=== PATIENT | male | born 1970 | race Two or more races ===

== ENCOUNTER 2024-09-07 17:09 | Inpatient (IN) | payer OTHER, SELFPAY ==
[2024-09-07 17:20] VITALS: BP 217/118; PULSE 124; RESP 20; O2SAT 98; BMI 59.7
--- NOTE | 2024-09-07 17:20 | XR_ITS ---
Examination: CT brain head without contrast. 2-D sagittal coronal reconstructions Date and time of exam:September 07, 2024 1725 hrs. Indications: Stroke alert, onset focal neurologic deficit beginning 4:00 PM today, including right-sided body numbness CTDI: vol (mGy):66.6 DLP: (mGycm):1301 Technique: Multiple CT axial sections of the brain have been obtained, 5 mm slice thickness. Contrast has not been administered. 2-D sagittal, coronal reconstructions have been obtained Low dose protocols were performed. One or more of the following dose reduction techniques were used; automated exposure control, adjustment of the mA and/or KV according to patient size, use of iterative reconstruction technique. Findings: No significant ventricular enlargement. Intra-axial or extra-axial hemorrhage density is not seen. No mass effect or midline shift Basal cisterns are not remarkable. Fourth ventricle is midline. Cranial vault intact. Impression: Negative for acute hemorrhage, mass effect or midline shift Brain MRI MRA without contrast, stroke protocol, follow-up would best assess for demyelinating disease, acute ischemic change
--- NOTE | 2024-09-07 17:20 | EKG_ITS ---
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
--- NOTE | 2024-09-07 17:20 | XR_ITS ---
Examination: CTA carotids with intravenous contrast CTA brain, head with intravenous contrast. 2-D sagittal, coronal reconstructions. 3-D reconstructions. Exam date and time: September 07, 2024 1735 hrs. Indications: Stroke alert, onset left-sided body numbness focal neurologic deficit beginning 4:00 PM today CTDI: vol (mGy) 20.9 DLP: (mGycm) 438 Technique: Multiple CTA axial brain, head carotid images post intravenous contrast injection 75 cc, [id number]. 2-D sagittal, coronal reconstructions. 3-D reconstructions, 3-D post processing including vascular maximum intensity projection images. Low dose protocols were performed. One or more of the following dose reduction techniques were used; automated exposure control, adjustment of the mA and/or KV according to patient size, use of iterative reconstruction technique. Findings: No significant common carotid carotid bifurcation or internal carotid artery stenoses Markedly atretic but intact appearing right vertebral artery No cerebral large vessel arterial occlusions, thrombus, dissection or cerebral aneurysm Impression: No significant neck arterial stenoses No cerebral arterial stenoses are large vessel occlusions
[2024-09-07 17:21] VITALS: RESP 17; O2SAT 98
--- NOTE | 2024-09-07 17:21 | PC.NURSE ---
Pt. taken to CT via so[facility]ail, pt. states he thinks he had a seizure at 1300 today, pt. states he called his around 1700 to tell her he was having a stroke, Dr. Edgard gibbs M.D. on tele monitor, report given, pt. informed me RN that he was on seizure medication and high blood pressure medication, pt. states he drank to much alcohol today and he thinks that is why he had a seizure, asked pt. if he is trying to kill himself, pt. started laughing and stated he's not answering that question. Informed pt. it's not safe to take high blood pressure medication and seizure medication with alcohol, pt. states he knows.
--- NOTE | 2024-09-07 17:21 | PD.EDADULT ---
ED General RME/[facility] General Chief complaint: General Adult/Misc Complain Stated complaint: RIGHT SIDED NUMBNESS LKW 4PM Time Seen by Provider: 09/07/24 17:20 Arrival date/time: 09/07/24 17:09 RME / HPI RME / HPI narrative: 54-year-old male patient with significant history of hypercholesterolemia diabetes mellitus hypertension, chronic alcoholism was brought in by family for evaluation regarding slurring of speech. Last well-known time between 330 to 4 PM. Patient also complained of numbness to the right side of the upper and lower extremity. Patient denies any headache denies any dizziness. Denies any chest pain. Patient also denies any fall or trauma. No medications taken prior travel. Related Data Home Medications ?Medication ?Instructions ?Recorded ?Confirmed atorvastatin 20 mg tablet 20 mg PO QPM 07/18/24 07/18/24 ferrous sulfate 325 mg (65 mg 325 mg PO QDAY 07/18/24 07/18/24 iron) tablet (FeroSul) lisinopril 10 mg tablet 10 mg PO QDAY 07/18/24 07/18/24 Allergies Allergy/AdvReac Type Severity Reaction Status Date / Time No Known Allergies Allergy Verified 07/18/24 09:28 Review of Systems Review of Systems Narrative Review of Systems: Review of system reviewed and within normal limits except mentioned in HPI ED Exam Narrative Physical exam: VITAL SIGNS: Reviewed. GENERAL APPEARANCE: Alert and interactive, follows commands, no acute distress, HEAD AND FACE: Non-traumatic. ENT: PERRL, pink conjunctivitis, eyelid no trauma, Mucous membrane moist. NECK: Supple, nontender, no nuchal rigidity. CHEST: No tenderness, no crepitus, no paradoxical movement, no retractions. LUNGS: Clear, well ventilated, symmetric, no rales, no wheezing, no ronchi, no stridor, good breath sounds bilaterally. HEART: Regular rate, regular rhythm, no murmur, no gallops. ABDOMEN: Soft, positive bowel sounds, nondistended, no guarding, nontender, no rebound, no masses, RECTAL: Deferred. GENITAL: Deferred. NEUROLOGICAL: Gross motor function intact both upper lower extremity, numbness noted on the right upper and right lower extremity, no arm or lower leg drifting noted bilateral MUSCULOSKELETAL: low back nontender, full range of motion. EXTREMITIES: Nontender, full range of motion. SKIN: Color pink, dry, no rash, no lacerations, no abrasions, no contusions. LYMPHATICS: Deferred. Course Quality Measures none Orders Category Date Time Status Bedside Blood Glucose NOW Care 09/07/24 17:20 Active COVID-19 Screening Questionnaire NOW Care 09/07/24 19:25 Active Charging Operator NOW Care 09/07/24 17:20 Active Continuous Pulse Oximetry NOW Care 09/07/24 17:20 Completed Decision to Admit X1 Care 09/07/24 19:25 Active EKG (ED ONLY) *Do not use* NOW Care 09/07/24 17:20 Completed In and Out Catheter NEEDED Care 09/07/24 17:20 Active Insert IV NOW Care 09/07/24 17:20 Active NIH Stroke Scale now Care 09/07/24 17:20 Active NPO NOW Care 09/07/24 17:20 Active Nurse Swallow Screen x1 Care 09/07/24 17:20 Active Consult to Neurology / Tele-Neurology Routine Cons 09/07/24 17:[address] angio stroke protocol Stat Exams 09/07/24 17:[address] stroke protocol Stat Exams 09/07/24 17:20 Completed EKG (ED Only) Stat Exams 09/07/24 17:20 Draft Alcohol, Blood Medical Stat Lab 09/07/24 17:33 Completed CBC Stat Lab 09/07/24 17:33 Completed Comprehensive Metabolic Panel Stat Lab 09/07/24 17:33 Completed Drug Screen,Urine Stat Lab 09/07/24 17:20 Ordered Magnesium Stat Lab 09/07/24 17:33 Completed Partial Thromboplastin Time Stat Lab 09/07/24 17:33 Completed Prothrombin Time with INR Stat Lab 09/07/24 17:33 Completed Troponin I Stat Lab 09/07/24 17:33 Completed Urinalysis Stat Lab 09/07/24 17:20 Ordered Urine Culture Stat Lab 09/07/24 17:20 Ordered Aspirin [Ecotrin] Med 09/07/24 18:11 Discontinued 81 mg PO X1 ONE Clopidogrel [Plavix] Med 09/07/24 18:11 Discontinued 300 mg PO X1 ONE Ondansetron Inj [Zofran Inj] Med 09/07/24 17:20 Active 4 mg IV Q4HR PRN Oxygen Delivery NOW RT 09/07/24 17:20 Active Vital Signs Vital signs: Vital Signs Pulse Rate 124 H 09/07/24 17:20 Respiratory Rate 20 09/07/24 17:20 Blood Pressure 217/118 H 09/07/24 17:20 Pulse Oximetry (%) 98 09/07/24 17:20 Oxygen Delivery Method Room Air 09/07/24 17:20 [facility] Patient data External records reviewed:: None Clinical information provided by:: patient Social determinants that could affect healthcare access:: alcohol use Patient has the following chronic illnesses:: Hypertension chronic alcoholism How is presenting disease/condition affected by chronic disease/condition?: exacerbated by Evaluation data The following diagnostics were reviewed and interpreted by me:: lab results and radiology exam(s) Lab and/or radiology exams considered but not ordered:: None Interpretation Summary: EKG as interpreted by me showed sinus tachycardia, ventricular rate of 110 bpm, no ST segment elevation depression noted. Patient's alcohol level today was noted to be 376. Patient glucose also was noted to be 326. CT scan of the head came back unremarkable CT angiogram of the head and neck came back unremarkable. Medications Medications considered but not ordered:: None patient received aspirin and Plavix Medication administrations:: Medication Administration History Ondansetron HCl (Ondansetron Inj 2 Mg/Ml Inj 2 Ml) 4 mg IV Q4HR PRN PRN Reason: NAUSEA OR VOMITING Stop: 10/07/24 17:19 Discontinued Medications Aspirin (Aspirin Ec 81 Mg Tabec) 81 mg PO X1 ONE Stop: 09/07/24 18:12 Last Admin: 09/07/24 18:48 Dose: 81 mg Documented By: ED Clopidogrel Bisulfate (Clopidogrel Bisulfate 75 Mg Tablet) 300 mg PO X1 ONE Stop: 09/07/24 18:12 Last Admin: 09/07/24 18:49 Dose: 300 mg Documented By: ED Received aspirin and Plavix Consultations Consultation(s) initiated? (list below): No Diagnosis Differential Diagnosis ED Complaint MDM: Alcohol intoxication, strokelike symptoms, paresthesia Most likely diagnosis given after review of the tests above:: Alcohol intoxication, strokelike symptoms Admission Indicated Admission indicated?: indicated Explain why admission is indicated or not indicated:: Patient is to be admitted for further management. Admission Request Was there a request for admission?: Yes Admission Attestation Admission request attestation: Discussed case with [Mirta ] from Hospitalist service regarding admission. Discussed patients ED course, exam findings, labs, and radiology results. The Hospitalist [agrees,] to accept the patient for admission. Disposition Plan Disposition Plan: Admit Medical Decision Making MDM Narrative MDM Narrative: 54-year-old male patient with significant history of hypercholesterolemia diabetes mellitus hypertension, chronic alcoholism was brought in by family for evaluation regarding slurring of speech. Last well-known time between 330 to 4 PM. Patient also complained of numbness to the right side of the upper and lower extremity. Patient denies any headache denies any dizziness. Denies any chest pain. Patient also denies any fall or trauma. No medications taken prior travel. Stroke alert was initiated right away. CT scan of the head came back unremarkable CT angiogram of the head and neck came back unremarkable. I spoke with teleneurology who recommend admission loaded patient on Plavix 300 mg and aspirin 81 mg. Patient is not a candidate for tPA due to timeframe confusion. Patient plan of care discussed with him, he agrees to be admitted. Differential Diagnosis Differential Diagnosis: Alcohol intoxication, strokelike symptoms, paresthesia Lab Data 09/07/24 17:33 09/07/24 17:33 Labs: Lab Results 09/07/24 Range/Units 17:33 WBC 5.6 (3.8-10.6) Thou/mm3 RBC 4.46 L (4.50-5.90) Miln/mm3 Hgb 15.1 (13.5-16.0) g/dL Hct 42.7 (41.0-53.0) % MCV 96 (80-100) fL MCH 33.9 (25.0-35.0) pg MCHC 35.4 (31.0-37.0) g/dl RDW Std Deviation 46.5 H (35.1-43.9) fL Plt Count 157 (140-440) Thou/mm3 Neut % (Auto) 57 (37-80) % Lymph % (Auto) 30 (10-50) % Fannin % (Auto) 11 (0-12) % Eos % (Auto) 0 (0-10) % Baso % (Auto) 1 (0-2.5) % Neut # (Auto) 3.2 (1.8-7.7) Thou/mm3 Lymph # (Auto) 1.7 (1.0-4.8) Thou/mm3 Fannin # (Auto) 0.6 (0.0-0.8) Thou/mm3 Eos # (Auto) 0.0 (0.0-0.5) Thou/mm3 Baso # (Auto) 0.1 (0.0-0.2) Thou/mm3 Immature Gran # (Auto) 0.01 H (0.00-0.00) Thou/mm3 Absolute Nucleated RBC 0.00 (0.00-0.00) Thou/mm3 Immature Gran % 0 (0-0) % Nucleated RBC % 0 (0) /100 WBC PT 12.9 H (9.0-12.2) Seconds INR 1.2 (0.9-1.3) APTT 25.9 (22.0-36.0) Seconds Sodium 131 L (136-145) mMol/L Potassium 3.7 (3.4-5.1) mMol/L Chloride 95 L (98-107) mMol/L Carbon Dioxide 23.1 (20.0-31.0) mMol/L Anion Gap 13 (7-16) BUN 5 L (9-23) mg/dL Creatinine 1.2 (0.6-1.3) mg/dL Estim Creat Clear Calc 107.4 (>60) mL/min eGFR > 60 (60 - ) See Note BUN/Creatinine Ratio 4 L (12-20) Ratio Glucose 326 H (74-106) mg/dL Calculated Osmolality 272 L (275-295) Calcium 8.7 (8.3-10.6) mg/dL Corrected Calcium 8.7 (8.5-10.1) mg/dL Magnesium 2.1 (1.6-2.6) mg/dL Total Bilirubin 0.8 (0.3-1.2) mg/dL AST 101 H (0-34) U/L ALT 36 (10-49) U/L Alkaline Phosphatase 154 H (46-116) U/L Troponin I < 0.020 (0.0-0.045) ng/mL Total Protein 8.1 (5.7-8.2) gm/dL Albumin 4.9 (3.5-5.0) gm/dL Globulin 3.2 (2.3-3.5) gm/dL Albumin/Globulin Ratio 1.5 (1.2-2.2) Ethyl Alcohol 376.5 H (0-10.0) mg/dL Discharge Plan Plan Patient Disposition: Admit Acute Care w/in Hospital Disposition Comment: Stable Prescriptions/Referrals Prescriptions/Med Rec: No Action atorvastatin 20 mg Tablet 20 mg PO QPM ferrous sulfate [FeroSul] 325 mg (65 mg iron) Tablet 325 mg PO QDAY lisinopril 10 mg Tablet 10 mg PO QDAY Referrals: No Primary/Family,Physician [Primary Care Provider] - In 1 week Problem List Clinical Impression: Stroke-like symptom, Alcohol intoxication Patient/Caregiver Discharge Instructions Print Language: Romanian Stand Alone Forms: Charu Award Info., Patient Portal Info Letter
[2024-09-07 17:41] LABS: Basophils # (Auto) 0.1 Thou/mm3 (0.0-0.2); Basophils % (Auto) 1 % (0-2.5); Eosinophils % (Auto) 0 % (0-10); Hematocrit 42.7 % (41.0-53.0); Hemoglobin 15.1 g/dL (13.5-16.0); Immature Granulocytes % (Auto) 0 % (0-0); Immature Granulocytes Auto 0.01 Thou/mm3 (0.00-0.00); Lymphocytes # (Auto) 1.7 Thou/mm3 (1.0-4.8); Lymphocytes % (Auto) 30 % (10-50); Mean Corpuscular HGB Conc 35.4 g/dl (31.0-37.0); Mean Corpuscular Hemoglobin 33.9 pg (25.0-35.0); Mean Corpuscular Volume 96 fL (80-100); Monocytes # (Auto) 0.6 Thou/mm3 (0.0-0.8); Monocytes % (Auto) 11 % (0-12); Neutrophils # (Auto) 3.2 Thou/mm3 (1.8-7.7); Neutrophils % (Auto) 57 % (37-80); Nucleated Red Blood Cell % 0 /100 WBC (0); Platelet Count 157 Thou/mm3 (140-440); RDW Standard Deviation 46.5 fL (35.1-43.9); Red Blood Count 4.46 Miln/mm3 (4.50-5.90); White Blood Count 5.6 Thou/mm3 (3.8-10.6)
--- NOTE | 2024-09-07 17:56 | PC.NURSE ---
Pt. told Dr. Edgard Cheng that he wasn't taking seizure medication, that his told him she thought he needed seizure medication because he is an alcoholic.
[2024-09-07 18:00] LABS: INR 1.2 (0.9-1.3); Partial Thromboplastin Time 25.9 Seconds (22.0-36.0); Prothrombin Time 12.9 Seconds (9.0-12.2)
[2024-09-07 18:01] VITALS: PULSE 83
[2024-09-07 18:05] LABS: Alanine Aminotransferase 36 U/L (10-49); Albumin, Serum 4.9 gm/dL (3.5-5.0); Albumin/Globulin Ratio 1.5 (1.2-2.2); Alcohol, Blood Medical 376.5 mg/dL (0-10.0); Alkaline Phosphatase 154 U/L (46-116); Anion Gap 13 (7-16); Aspartate Amino Transferase 101 U/L (0-34); BUN/Creatinine Ratio 4 Ratio (12-20); Bilirubin,Total 0.8 mg/dL (0.3-1.2); Blood Urea Nitrogen 5 mg/dL (9-23); Calcium 8.7 mg/dL (8.3-10.6); Calcium (Corrected) 8.7 mg/dL (8.5-10.1); Carbon Dioxide 23.1 mMol/L (20.0-31.0); Chloride 95 mMol/L (98-107); Creatinine (Component) 1.2 mg/dL (0.6-1.3); Estimated Creatinine Clearance 107.4 mL/min (>60); Globulin 3.2 gm/dL (2.3-3.5); Glucose 326 mg/dL (74-106); Magnesium 2.1 mg/dL (1.6-2.6); Osmolality,Calculated 272 (275-295); Potassium 3.7 mMol/L (3.4-5.1); Sodium 131 mMol/L (136-145); Total Protein 8.1 gm/dL (5.7-8.2); Troponin I < 0.020 ng/mL (0.0-0.045); eGFR > 60 See Note
--- NOTE | 2024-09-07 18:20 | PC.NURSE ---
Pt. ambulated to after he was asked to stay in bed because he stated he had a seizure.
--- NOTE | 2024-09-07 18:22 | ESCONSULT_ITS ---
Tele Neuro Consultation Consultation Date 09/07/24 Most Recent Vital Signs Last Vital Signs Pulse 83 09/07/24 18:01 Resp 17 09/07/24 17:21 BP 217/118 H 09/07/24 17:20 Pulse Ox 98 09/07/24 17:21 O2 Del Method Room Air 09/07/24 17:20 Laboratory-Coagulation Panel PT 12.9 Seconds (9.0-12.2) H 09/07/24 17:33 INR 1.2 (0.9-1.3) 09/07/24 17:33 APTT 25.9 Seconds (22.0-36.0) 09/07/24 17:33 Consultation Narrative [facility] Patient Name:???Ignacio Dumont Date of :???1970 Date of Service:???09/07/2024 17:14:37 Diagnosis:?G83.11 - Monoplegia of lower limb affecting right dominant side Impression: ?54-year-old male history of alcohol use, seizures not on medication, hyperlipidemia, hypertension who I am seeing as a stroke alert for seizure and right-sided numbness and weakness. ? ?Patient being seen after he was drinking alcohol today and felt like he had a seizure however unclear if he truly had one as there is no evidence of tongue or lip bite on exam despite him stating so. He is complaining of right arm and leg numbness and right leg weakness since his seizure at 1 PM . Neuroexam showing right-sided numbness, right leg drift otherwise no other focal deficits. CT head negative for acute process. CT angiogram negative for large vessel occlusion. ? ?At this time, differentials include alcohol intoxication, stroke,seizure with post ictal state, cervical spine process less likely. Would check ethanol level, reassess neuroexam after he pa up and if continued right leg weakness and right-sided numbness, would obtain MRI brain noncontrast to rule out stroke. EEG should be considered if recurrent events. He can be loaded with clopidogrel 300 mg/asa 81 mg x 1 for possible stroke. Will hold on giving thrombolytic as patient symptoms started at 1 PM thus out of the time window. Our recommendations are outlined below. Recommendations: ? Stroke/Telemetry Floor ? Neuro Checks ? Euglycemia and Avoid Hyperthermia (PRN Acetaminophen) ?Clopidogrel 300 mg, asa 81 mg x1 ?MRI brain non con ?ethanol level EEG ?Permissive HTN x 24 hrs, treat at 200/100 Neurology follow up Sign Out: ? Discussed with Emergency Department Provider Advanced Imaging: CTA Head and Neck Completed. LVO:No Patient in not a candidate for VERONIKA Metrics: Last Known Well: 09/07/2024 13:00:00 Dispatch Time: 09/07/2024 17:14:37 Arrival Time: 09/07/2024 17:09:00 Initial Response Time: 09/07/2024 17:18:18Symptoms: seizure, numbness . Initial patient interaction: 09/07/2024 17:23:55 NIHSS Assessment Completed: 09/07/2024 17:25:58Patient is not a candidate for Thrombolytic. Thrombolytic Medical Decision: 09/07/2024 17:26:00Patient was not deemed candidate for Thrombolytic because of following reasons: LKW outside 4.[address] head showed no acute hemorrhage or acute core infarct. Primary Provider Notified of Diagnostic Impression and Management Plan on: 18:10:38 History of Present Illness:Patient is a 54 year old Male. Patient was brought by EMS for symptoms of seizure, numbness . 54-year-old male history of alcohol use, seizures not on medication, hyperlipidemia, hypertension who I am seeing as a stroke alert for seizure and right-sided numbness and weakness. Patient states that around 1:00 he felt like he had a seizure because he had a headache and was feeling shaky all over. He does state biting his lip and tongue however no visible tongue or lip bite on camera exam. He does state drinking a lot of alcohol today. His symptoms of right-sided numbness and weakness started around 1 PM last known well. He initially stated being on seizure medications with RN but now he saying that he is not on any medications for seizures . Past Medical History: ?Hypertension ?Hyperlipidemia ?Seizures Medications: No Anticoagulant use? No Antiplatelet use Reviewed EMR for current medications Allergies:? Reviewed Social History: Drug Use: No Family History: There is no family history of premature cerebrovascular disease pertinent to this consultation ROS : 14 Points Review of Systems was performed and was negative except mentioned in HPI. Past Surgical History: There Is No Surgical History Contributory To Today?s Visit Examination: BP(217/118),?Pulse(124), 1A: Level of Consciousness - Alert; keenly responsive?+ 0 1B: Ask Month and Age - Both Questions Right?+ 0 1C: Blink Eyes & Squeeze Hands - Performs Both Tasks?+ 0 2: Test Horizontal Extraocular Movements - Normal?+ 0 3: Test Visual Grimm - No Visual Loss?+ 0 4: Test Facial Palsy (Use Grimace if Obtunded) - Normal symmetry?+ 0 5A: Test Left Arm Motor Drift - No Drift for 10 Seconds?+ 0 5B: Test Right Arm Motor Drift - No Drift for 10 Seconds?+ 0 6A: Test Left Leg Motor Drift - No Drift for 5 Seconds?+ 0 6B: Test Right Leg Motor Drift - Drift, but doesn't hit bed?+ 1 7: Test Limb Ataxia (FNF/Heel-Newsome) - No Ataxia?+ 0 8: Test Sensation - Mild-Moderate Loss: Less Sharp/More Dull?+ 1 9: Test Language/Aphasia - Normal; No aphasia?+ 0 10: Test Dysarthria - Normal?+ 0 11: Test Extinction/Inattention - No abnormality?+ 0 NIHSS Score:?2 Pre-Morbid Modified [place] Scale:Unable to assess Spoke with :?Dr Gould This consult was conducted in real time using interactive audio and video technology. Patient was informed of the technology being used for this visit and agreed to proceed. Patient located in hospital and provider located at home/office setting. Patient is being evaluated for possible acute neurologic impairment and high pro bability of imminent or life-threatening deterioration. I spent total of 35 minutes providing care to this patient, including time for face to face visit via telemedicine, review of medical records, imaging studies and discussion of findings with providers, the patient and/or family. Dr Edgard Cheng [facility] For Inpatient follow-up with [facility] physician please call [facility] at . As we are not an outpatient service for any post hospital discharge needs please contact the hospital for assistance. If you have any questions for the [facility] physicians or need to rec onsult for clinical or diagnostic changes please contact us via [facility] at .
--- NOTE | 2024-09-07 18:32 | PC.NURSE ---
Pt. sitting in chair bedside and refusing to get into bed.
[2024-09-07 18:33] VITALS: BP 180/125; PULSE 119; RESP 18; TEMP 36.9; O2SAT 95
[2024-09-07] MEDS: ASPIRIN EC 81 MG TABEC PO (18:48)
[2024-09-07] MEDS: CLOPIDOGREL BISULFATE 75 MG TABLET 300 MG PO (18:49)
--- NOTE | 2024-09-07 18:51 | PC.NURSE ---
Pt.'s is bedside.
--- NOTE | 2024-09-07 20:02 | ECHO_ITS ---
Transthoracic Echo Report Ht (in): 66 Wt (lb): 370 Exam Location: Echo Lab Status: Emergency Senior Operator: Alexia Garrett Indications: Procedure Performed: BP: 138 / 101 HR: 95 Technical Quality: Very technically difficult study MEASUREMENTS (Male / Female) Normal Values 2D ECHO LV Diastolic Diameter PLAX 4.3 cm 4.2 - 5.9 / 3.9 - 5.3 cm LV Systolic Diameter PLAX 3.1 cm IVS Diastolic Thickness 0.9 cm 0.6 - 1.0 / 0.6 - 0.9 cm LVPW Diastolic Thickness 1.1 cm 0.6 - 1.0 / 0.6 - 0.9 cm LV Relative Wall Thickness 0.5 LVOT Diameter 2.0 cm M-MODE Aortic Root Diameter MM 2.8 cm LA Systolic Diameter MM 4.1 cm LA Ao Ratio MM 1.5 AV Cusp Separation MM 2.0 cm DOPPLER AV Peak Velocity 108.0 cm/s AV Peak Gradient 4.7 mmHg AV Mean Gradient 2.0 mmHg AV Velocity Time Integral 21.4 cm LVOT Peak Velocity 91.6 cm/s LVOT Peak Gradient 3.4 mmHg LVOT Velocity Time Integral 17.5 cm LVOT Cardiac Index 1797.5 cm?/min?m? AV Area Cont Eq vti 2.6 cm? AV Area Cont Eq pk 2.7 cm? MV Area PHT 4.1 cm? Mitral E Point Velocity 40.7 cm/s Mitral A Point Velocity 59.2 cm/s Mitral E to A Ratio 0.7 LV E' Lateral Velocity 10.7 cm/s Mitral E to LV E' Lateral Ratio 3.8 LV E' Septal Velocity 6.7 cm/s Mitral E to LV E' Septal Ratio 6.0 PV Peak Velocity 143.0 cm/s PV Peak Gradient 8.2 mmHg FINDINGS Left Ventricle Normal left ventricular size, wall thickness, systolic function with no obvious regional wall motion abnormalities. Normal left ventricular diastolic filling pattern for age. The ejection fraction is v isually estimated at 60-65 %. Right Ventricle The right ventricle is normal in size and systolic function. Left Atrium Left atrium not well visualized. Right Atrium Right atrium is not well visualized. Atrial Septum The interatrial septum appears normal with no evidence of a shunt. Aorta The aorta is normal by two-dimensional, color flow and Doppler interrogation. Mitral Valve The mitral valve is normal by two-dimensional, color flow and Doppler interrogation. There is no sig nificant mitral valve regurgitation, stenosis or prolapse. Aortic Valve The aortic valve is trileaflet and normal by two-dimensional, color flow and Doppler interrogation. There is no significant aortic valve regurgitation. Tricuspid Valve The tricuspid valve is normal by two-dimensional, color flow and Doppler interrogation. There is no significant tricuspid valve regurgitation. Pulmonic Valve The pulmonic valve is not well visualized. There is no significant pulmonic valve regurgitation. Vessels The pulmonary artery appears normal. The inferior vena cava pulmonary and hepatic veins appear luciana l. Pericardium The pericardium is normal by two-dimensional imaging. There is no significant pericardial effusion. CONCLUSIONS Indication: Stroke r/o suboptimal images Normal left ventricular size and wall thickness. Esimated EF 65%. RVis normal is size and systolic function. No cardiac thrombi seen Mayda Hernadez (Electronically Signed) Final Date: 10 September 2024 12:50
--- NOTE | 2024-09-07 20:09 | ESHP_ITS ---
Documentation for date of: 09/07/24 HPI History of Present Illness Chief complaint: Seizure, R-sided numbness History of present illness: 54-year-old male with past medical history of morbid obesity, hypertension, type 2 diabetes [id number], hyperlipidemia, heavy alcohol use disorder along with subjective seizures/likely alcohol withdrawal seizures presenting to the ED on 09/07 with slurred speech and right-sided numbness which occurred sometime around 2 PM. Patient is accompanied by his who also provides some history as she witnessed most of the events that transpired. Per patient and , the patient started developing slurred speech around 2 PM which progressively worsened with weakness and right-sided numbness and difficulty ambulating. Per the patient, he also had a seizure earlier in the day around 1 PM where he describes that he started shaking uncontrollably and his face turned purple. Patient states that he has history of seizures in the past and the last episode prior to this 1 was about a week ago; however, he did not seek medical attention at that time. Both events were witnessed and the corroborates the story, but denies that the patient has been seen by neurologist in the past. Patient recently moved from [place] about 6 months ago to [place] to stay with his daughter and has not established with a PCP. Of note, patient apparently was feeling sick about 2 days ago with runny nose and cough; moreover, patient's was sick at first. Patient states that he has been having chest pain since the onset of these cold symptoms; moreover, chest pain/tightness in the middle of the chest with no radiation still present in the ED. Medical history: As described above Surgical history: Multiple MSK surgeries, hernia repair, bicep tendon repair, lower back surgery, right ankle status post bolt placement Allergies: NKDA Medications: Pending med rec, apparently patient does not know what medications he takes but he takes 4 pills a day Family history: Patient's both parents have MIs in the past; denies knowing whether they had high blood pressure or diabetes Social history: Patient is from [place], moved to [place] 6 months ago, lives with daughter, 3 grandchildren and , does not work currently, denies smoking tobacco, drinks 18 beers a day along with a bottle of vodka, denies illicit drug use. ROS: All 12 systems assessed and the patient denies unless otherwise stated in HPI In the ED, patient presented in hypertensive emergency with blood pressure 217/118, tachycardic, tachypneic, afebrile satting 98 on room air. Stroke alert initiated; NIHSS score of 2 per teleneurologist. Fingerstick blood glucose of 318, other pertinent lab findings include sodium 131, chloride 95, BUN 5, creatinine 1.2, glucose 326, AST 101, ALT 36, alk phos 154, troponin within normal limits. U tox positive for ethyl alcohol 376.5. EKG shows sinus tachycardia with no concerning ST changes, head CT and head and neck CTA showing no acute process. Patient will be admitted for stroke workup and [facility] protocol for likely alcohol withdrawal seizure; neurologist consulted appreciate recommendations. Exam Vital Signs Temp Pulse Resp BP Pulse Ox O2 Del Method 98.5 F 119 H 18 180/125 H 95 Room Air 09/07/24 18:33 09/07/24 18:33 09/07/24 18:33 09/07/24 18:33 09/07/24 18:33 09/07/24 18:33 Narrative Exam Physical Exam: GENERAL: Awake, answering questions appropriately, appears stated age HEENT: NC/AT. Moist mucosa. PERRLA/EOMI. CARDIO: Heart RRR, no obvious murmurs, JVD noted. PULM: No coughing or visible SOB. Lungs CTA B/L. GI: Abdomen soft, obese, tenderness to palpation on LUQ, hypoactive bowel sounds, no guarding or rigidity noted SKIN/MSK/EXT: No wounds/discoloration/rashes/edema/amputations. +Pedal pulses present B/L. NEURO: Oriented x3, CN 2-12 intact, certified breastfeeding educator strength 4/5 on R and 5/5 on L, muscle strength 5/5 bilateral lower ext, able to keep R upper extremity up against gravity Results: Labs 09/07/24 17:33 09/07/24 17:33 Labs: Short CBC 09/07/24 Range/Units 17:33 WBC 5.6 (3.8-10.6) Thou/mm3 Hgb 15.1 (13.5-16.0) g/dL Hct 42.7 (41.0-53.0) % Plt Count 157 (140-440) Thou/mm3 BMP 09/07/24 17:33 Sodium 131 L Potassium 3.7 Chloride 95 L Carbon Dioxide 23.1 BUN 5 L Creatinine 1.2 Glucose 326 H Calcium 8.7 Cardiac Enzymes 09/07/24 Range/Units 17:33 Troponin I < 0.020 (0.0-0.045) ng/mL Liver Function 09/07/24 Range/Units 17:33 Total Bilirubin 0.8 (0.3-1.2) mg/dL AST 101 H (0-34) U/L ALT 36 (10-49) U/L Alkaline Phosphatase 154 H (46-116) U/L Albumin 4.9 (3.5-5.0) gm/dL Quality Measures Quality Measures none Medications Home Medications and Allergies Home Medications ?Medication ?Instructions ?Recorded ?Confirmed ?Type atorvastatin 20 mg tablet 20 mg PO QPM 07/18/24 07/18/24 History ferrous sulfate 325 mg (65 mg 325 mg PO QDAY 07/18/24 07/18/24 History iron) tablet (FeroSul) lisinopril 10 mg tablet 10 mg PO QDAY 07/18/24 07/18/24 History Allergies Allergy/AdvReac Type Severity Reaction Status Date / Time No Known Allergies Allergy Verified 07/18/24 09:28 Visit Medications Acetaminophen (Acetaminophen 325 Mg Tablet) 650 mg PO Q6H PRN PRN Reason: Pain 1-3 and/or Fever >100.1 Stop: 10/07/24 19:59 Atorvastatin Calcium (Atorvastatin Calcium 10 Mg Tablet) 40 mg PO HS JUAN Stop: 10/07/24 20:59 Dextrose (Dextrose 50%-Water Inj 50 Ml Syringe) 25 ml IV Q15MIN PRN PRN Reason: BG 50-70 responsive npo pt Stop: 10/07/24 19:59 Dextrose (Dextrose 50%-Water Inj 50 Ml Syringe) 50 ml IV Q15MIN PRN PRN Reason: BG <50 OR BG <70 & pt unresponsive Stop: 10/07/24 19:59 Folic Acid (Folic Acid 1 Mg Tablet) 1 mg PO BID JUAN Stop: 09/12/24 20:59 Glucagon (Glucagon Inj 1 Mg Vial) 1 mg IM Q15MIN PRN PRN Reason: BG <70, and no IV access Insulin Human Lispro (Insulin Lispro (Admelog) 1 Unit/0.01 Ml Unit) 0 unit SC [facility]; Protocol Stop: 10/07/24 20:59 Lorazepam (Lorazepam 0.5 Mg Tablet) 0.5 mg PO Q4HR PRN PRN Reason: CIWA Score 2-6 Stop: 09/12/24 20:06 Lorazepam (Lorazepam 0.5 Mg Tablet) 1 mg PO Q4HR PRN PRN Reason: CIWA SCORE 7-11 Stop: 09/12/24 20:06 Lorazepam (Lorazepam 0.5 Mg Tablet) 2 mg PO Q4HR PRN PRN Reason: CIWA SCORE 12-15 Stop: 09/12/24 20:06 Lorazepam (Lorazepam 2 Mg/Ml Vial) 2 mg IVP X1 PRN PRN Reason: Breakthrough Agitation Ondansetron HCl (Ondansetron Inj 2 Mg/Ml Inj 2 Ml) 4 mg IV Q4HR PRN PRN Reason: NAUSEA OR VOMITING Stop: 10/07/24 17:19 Ondansetron HCl (Ondansetron Inj 2 Mg/Ml Inj 2 Ml) 4 mg IV Q6H PRN; Protocol PRN Reason: NAUSEA OR VOMITING Stop: 10/07/24 19:59 Sennosides (Senna Tablet) 1 tab PO QDAY JUAN; Protocol Stop: 10/08/24 08:59 Thiamine HCl (Thiamine 100 Mg Tablet) 100 mg PO BID JUAN Stop: 09/12/24 20:59 Discontinued Medications Aspirin (Aspirin Ec 81 Mg Tabec) 81 mg PO X1 ONE Stop: 09/07/24 18:12 Last Admin: 09/07/24 18:48 Dose: 81 mg Clopidogrel Bisulfate (Clopidogrel Bisulfate 75 Mg Tablet) 300 mg PO X1 ONE Stop: 09/07/24 18:12 Last Admin: 09/07/24 18:49 Dose: 300 mg Assessment & Plan Plan 54-year-old male with past medical history of morbid obesity, hypertension, type 2 diabetes [id number]-fihxltxfm, hyperlipidemia, heavy alcohol use disorder along with subjective seizures/likely alcohol withdrawal seizures presenting to the ED on 09/07 with slurred speech and right-sided numbness which occurred sometime around 2 PM will be admitted for stroke workup and CIWA protocol for likely alcohol withdrawal seizure; neurologist consulted appreciate recommendations. #CVA r/o #Alcohol withdrawal seizures #Heavy alcohol use disorder Patient presenting with slurred speech and right hand numbness which started sometime around 2 PM on 12/21 Patient also apparently had a seizure sometime around 1 PM where he had uncontrollable full body shakes along with his face turning purple; this was witnessed by family Patient does history of possible alcohol withdrawal seizures; last episode prior to this one was about 1-2 weeks ago; however, they did not seek medical care at that time Patient presenting to the ED with stroke alert initiated, teleneurology assessing with NIHSS score of 2 Patient given loading dose of Plavix and aspirin 81 mg per teleneurology recommendation CT head and CTA of head and neck show no acute process Plan: MRI stroke protocol EEG TTE w/ bubble Aspirin 81 daily Neurology, Dr. Guillory, consulted appreciate recommendations Euglycemia Temperature control PT and speech eval Head of bed greater than 30 degrees On CIWA protocol, thiamine and folate supplementation #Possible congestive heart disease #Possible coronary artery disease #OHS/ISABELLA #Morbid obesity ASCVD 11.7% Risk of cardiovascular event (coronary or stroke or non-fatal [place] or stroke) in next 10 years. 2.6% 10-year cardiovascular risk if risk factors were optimal. Patient presenting with chest pain which has been ongoing for at least 2 days; describes it as middle of his chest with no radiation Per patient's , he also has paroxysmal nocturnal dyspnea, snoring and periodical lower extremity edema Patient has multiple risk factors including: Uncontrolled hypertension, type 2 diabetes, obesity, family history of [place] Troponin within normal limits EKG does not show any concerning ST changes, sinus tachycardia Plan: Patient needs to establish care with PCP TTE with bubble study as above Patient could benefit from a sleep study outpatient Weight loss #Hypertension Pending med rec; patient possibly takes Lisinopril 10mg Plan: Permissive hypertension as above #Bex-weagfuw-ubsaoojed type 2 diabetes mellitus Patient denies using insulin No A1c on file Doesn't follow-up with PCP Plan: Lantus 10u x1 SSI Follow-up on A1c #Hyperlipidemia Pending med rec, patient apparently takes atorvastatin 20mg Plan: Started patient on high-intensity statin as above #Alcohol-related liver disease Patient has heavy alcohol use disorder, drinks 18 cans of beer along with a bottle of vodka almost every day 5?points Child Class A Life Expectancy : 15-20 years Abdominal surgery prashant- operative mortality: 10% Maddrey's 9.5?points Good prognosis Discriminant Function >32 points indicates poor prognosis and patient may benefit from glucocorticoid therapy. Presenting with AST to ALT ratio greater than 2:1 Plan: Counseled on alcohol cessation Establish PCP and monitor for liver disease progression Hospital Management: Lines: PIV Diet: Cardiac, pending nurse swallow screen Bowel: Senna GI prophylaxis: Not needed DVT prophylaxis: SCD Dispo: Neurologist consulted, MRI and TTE with bubble study ordered, CIWA protocol on telemetry Code: Full Patient seen and assessed with attending Dr. Yoan Kirby, PGY-1 Attending Provider Attestation/Addendum Face to face evaluation was performed by me. I have personally seen and examined the patient. I discussed the assessment and plan with the entire medicine team. I reviewed available medical records, imaging studies, laboratory results. I agree with the above subjective data, objective findings, assessment and plan except as corrected by me or noted below Alcohol intoxication Possible seizures, prior to admission, could be alcohol withdrawal seizures R side numbness CVA rule out HLD possible HTN essential - ciwa, scheduled librium, thiamine, iv hydration if not able to take PO enough Neuro ocnuslt MRI brain, EEG, Echo bubble study permissive HTN in case this is acute ischemic CVA
[2024-09-07 20:13] VITALS: BP 144/105; PULSE 114; RESP 17; TEMP 36.9; O2SAT 97
[2024-09-07] MEDS: INSULIN GLARGINE (Lantus) 5 UNIT/0.05 ML (PER 5 UNITS) 10 UNIT SC (21:04)
[2024-09-07] MEDS: POTASSIUM CHLORIDE 10% 20 MEQ/15 ML UDC 40 MEQ PO (21:10)
[2024-09-07] MEDS: THIAMINE 100 MG TABLET PO (21:12)
[2024-09-07] MEDS: ACETAMINOPHEN 325 MG TABLET 650 MG PO (22:35)
[2024-09-07] MEDS: chlordiazePOXIDE HCl 25 MG CAPSULE PO ×2 (22:35→22:36)
[2024-09-07] MEDS: FOLIC ACID 1 MG TABLET PO (22:40)
--- NOTE | 2024-09-07 23:15 | PC.NURSE ---
Pt is awake and alert.. sig other brought pt somthing to eat. pt showing no withdraw sx. Pt laghing and joking.
[2024-09-07] MEDS: INSULIN LISPRO (AdmeLOG) 1 UNIT/0.01 ML UNIT SC (23:21)
[2024-09-07 23:30] VITALS: BP 127/77; PULSE 87; RESP 18; TEMP 36.6
--- NOTE | 2024-09-07 23:54 | PC.NURSE ---
Pt states he blacked out today and fellkacie on R side. co p[ain and numness to R hand. R hand has no bruising, swelling, redness or deformity.
--- NOTE | 2024-09-08 01:43 | PC.NURSE ---
report was callede to mauricio Holman taken to [phone]
[2024-09-08] MEDS: LIDOCAINE 5% 1 PATCH TOP (01:57)
[2024-09-08] MEDS: HYDROcodone/APAP 5/325 TABLET 1 TAB PO ×3 (01:57→22:06)
[2024-09-08] MEDS: ATORVASTATIN CALCIUM 10 MG TABLET 40 MG PO (01:57)
[2024-09-08] MEDS: LORazepam 0.5 MG TABLET PO (02:04)
[2024-09-08 04:00] VITALS: BP 112/79; PULSE 100; PULSE 97; RESP 15; TEMP 36.2; O2SAT 96
[2024-09-08] MEDS: MORPHINE SULF INJ 10 MG/ML VIAL IVP ×2 (04:13→07:56)
[2024-09-08 05:49] LABS: INR 1.2 (0.9-1.3); Prothrombin Time 12.6 Seconds (9.0-12.2)
[2024-09-08 06:10] LABS: Alanine Aminotransferase 35 U/L (10-49); Albumin, Serum 4.7 gm/dL (3.5-5.0); Albumin/Globulin Ratio 1.5 (1.2-2.2); Alkaline Phosphatase 144 U/L (46-116); Anion Gap 12 (7-16); Aspartate Amino Transferase 111 U/L (0-34); BUN/Creatinine Ratio 4 Ratio (12-20); Bilirubin,Total 0.8 mg/dL (0.3-1.2); Blood Urea Nitrogen < 5 mg/dL (9-23); Calcium 8.7 mg/dL (8.3-10.6); Calcium (Corrected) 8.7 mg/dL (8.5-10.1); Carbon Dioxide 22.9 mMol/L (20.0-31.0); Cardiac Risk Estimate 2.8 RATIO (4.0-6.7); Chloride 99 mMol/L (98-107); Cholesterol 265 mg/dL (132-200); Creatinine (Component) 1.3 mg/dL (0.6-1.3); Estimated Creatinine Clearance 81.2 mL/min (>60); Globulin 3.1 gm/dL (2.3-3.5); Glucose 182 mg/dL (74-106); HDL Cholesterol 95 mg/dL (40-60); LDL Cholesterol,Calculated 134 mg/dL (0-130); Magnesium 1.9 mg/dL (1.6-2.6); Osmolality,Calculated 270 (275-295); Phosphorous 2.1 mg/dL (2.4-5.1); Potassium 3.6 mMol/L (3.4-5.1); Sodium 134 mMol/L (136-145); Thyroid Stimulating Hormone 4.35 uIU/mL (0.55-4.78); Total Protein 7.8 gm/dL (5.7-8.2); Triglycerides 180 mg/dL (30-150); eGFR > 60 See Note
[2024-09-08 07:05] LABS: Basophils % (Auto) 1 % (0-2.5); Eosinophils % (Auto) 0 % (0-10); Hemoglobin 14.2 g/dL (13.5-16.0); Immature Granulocytes % (Auto) 0 % (0-0); Immature Granulocytes Auto 0.02 Thou/mm3 (0.00-0.00); Lymphocytes # (Auto) 1.6 Thou/mm3 (1.0-4.8); Lymphocytes % (Auto) 25 % (10-50); Mean Corpuscular HGB Conc 34.6 g/dl (31.0-37.0); Mean Corpuscular Hemoglobin 34.5 pg (25.0-35.0); Mean Corpuscular Volume 100 fL (80-100); Monocytes # (Auto) 0.7 Thou/mm3 (0.0-0.8); Monocytes % (Auto) 10 % (0-12); Neutrophils # (Auto) 4.3 Thou/mm3 (1.8-7.7); Neutrophils % (Auto) 64 % (37-80); Nucleated Red Blood Cell % 0 /100 WBC (0); Platelet Count 170 Thou/mm3 (140-440); RDW Standard Deviation 47.8 fL (35.1-43.9); Red Blood Count 4.12 Miln/mm3 (4.50-5.90); White Blood Count 6.7 Thou/mm3 (3.8-10.6)
--- NOTE | 2024-09-08 07:33 | ESPR_ITS ---
Documentation for date of: 09/08/24 Subjective Subjective Interval history: No acute overnight events. Patient was seated in chair, complaining of lightheadedness and dizziness. Symptoms improved upon bedrest. Has mild headache, improving right sided numbness, feels a little shaky but also improving. Denies fever, chills, headaches, chest pain, sob, cough, GI or urinary symptoms. Exam Vital Signs Temp Pulse Resp BP Pulse Ox O2 Del Method 97.1 F 97 15 112/79 96 Room Air 09/08/24 04:00 09/08/24 04:00 09/08/24 04:00 09/08/24 04:00 09/08/24 04:00 09/08/24 04:00 Narrative Exam GENERAL: Ill-appearing, obese middle-age male HEENT: NCAT.?ELYSIA. Oral mucosa is moist. Patent Nares NECK: Supple, nontender, no thyromegaly, no meningismus, no JVD, no step offs CHEST: Symmetrical, atraumatic, and with equal expansion, Nontender on palpation no deformity and no crepitus. CARDIOVASCULAR: RRR, no m/g/r LUNGS: CTAB, no w/r/r. Symmetrical chest rise. No intercostal subcostal retraction. ABDOMEN: Soft, flat, nontender. No guarding/rebound tenderness/masses. +BS EXTREMITIES: Nontender.? No edema/cyanosis.?Moves all 4 extremities well, with full ROM and good CSM. SKIN: Warm and dry, no jaundice/rashes. MSK: No lumbar or midline, no CVA, no paraspinal muscle spasm or tenderness. NEURO: Mild bilateral upper extremity tremors. BAIRD x4, CN II-XII grossly intact.?No focal neurologic deficits. PSYCHIATRIC: Normal mood and affect, cooperative, no SI or HI or hallucinations. Objective Labs 09/08/24 04:37 09/08/24 04:37 Labs: Laboratory Results - last 24 hr 09/07/24 09/08/24 17:33 04:37 WBC 5.6 6.7 RBC 4.46 L 4.12 L Hgb 15.1 14.2 Hct 42.7 41.0 MCV 96 100 MCH 33.9 34.5 MCHC 35.4 34.6 RDW Std Deviation 46.5 H 47.8 H Plt Count 157 170 Neut % (Auto) 57 64 Lymph % (Auto) 30 25 [place] % (Auto) 11 10 Eos % (Auto) 0 0 Baso % (Auto) 1 1 Neut # (Auto) 3.2 4.3 Lymph # (Auto) 1.7 1.6 [place] # (Auto) 0.6 0.7 Eos # (Auto) 0.0 0.0 Baso # (Auto) 0.1 0.0 Immature Gran # (Auto) 0.01 H 0.02 H Absolute Nucleated RBC 0.00 0.00 Immature Gran % 0 0 Nucleated RBC % 0 0 PT 12.9 H 12.6 H INR 1.2 1.2 APTT 25.9 Sodium 131 L 134 L Potassium 3.7 3.6 Chloride 95 L 99 Carbon Dioxide 23.1 22.9 Anion Gap 13 12 BUN 5 L < 5 L Creatinine 1.2 1.3 Estim Creat Clear Calc 107.4 81.2 eGFR > 60 > 60 BUN/Creatinine Ratio 4 L 4 L Glucose 326 H 182 H D Calculated Osmolality 272 L 270 L Calcium 8.7 8.7 Corrected Calcium 8.7 8.7 Phosphorus 2.1 L Magnesium 2.1 1.9 Total Bilirubin 0.8 0.8 AST 101 H 111 H ALT 36 35 Alkaline Phosphatase 154 H 144 H Troponin I < 0.020 Total Protein 8.1 7.8 Albumin 4.9 4.7 Globulin 3.2 3.1 Albumin/Globulin Ratio 1.5 1.5 Triglycerides 180 H Cholesterol 265 H LDL Cholesterol, Calc 134 H HDL Cholesterol 95 H Cholesterol/HDL Ratio 2.8 L TSH 4.35 Ethyl Alcohol 376.5 H Quality Measures Quality Measures none Assessment & Plan Assessment Current Active Medications: Generic Name Dose Route Start Last Admin Trade Name Freq PRN Reason Stop Dose Admin Acetaminophen 650 mg 09/07/24 20:00 09/07/24 22:35 Acetaminophen 325 Mg Tablet PO 10/07/24 19:59 650 mg Q6H PRN Administration Pain 1-3 and/or Fever >100.1 Aspirin 81 mg 09/08/24 09:00 Aspirin Ec 81 Mg Tabec PO 10/08/24 08:59 QDAY JUAN Atorvastatin Calcium 40 mg 09/07/24 21:00 09/08/24 01:57 Atorvastatin Calcium 10 Mg Tablet PO 10/07/24 20:59 40 mg HS JUAN Administration Chlordiazepoxide HCl 25 mg 09/07/24 22:00 09/07/24 22:36 Chlordiazepoxide Hcl 25 Mg Capsule PO 09/12/24 21:59 25 mg TID JUAN Administration Dextrose 25 ml 09/07/24 20:00 Dextrose 50%-Water Inj 50 Ml Syringe IV 10/07/24 19:59 Q15MIN PRN BG 50-70 responsive npo pt Dextrose 50 ml 09/07/24 20:00 Dextrose 50%-Water Inj 50 Ml Syringe IV 10/07/24 19:59 Q15MIN PRN BG <50 OR BG <70 & pt unresponsive Folic Acid 1 mg 09/07/24 21:00 09/07/24 22:40 Folic Acid 1 Mg Tablet PO 09/12/24 20:59 1 mg BID JUAN Administration Glucagon 1 mg 09/07/24 20:00 Glucagon Inj 1 Mg Vial IM Q15MIN PRN BG <70, and no IV access Insulin Human Lispro 0 unit 09/07/24 21:00 09/07/24 23:21 Insulin Lispro (Admelog) 1 Unit/0.01 Ml Unit SC 10/07/24 20:59 4 unit ACHS JUAN Administration Protocol Lorazepam 0.5 mg 09/07/24 20:07 09/08/24 02:04 Lorazepam 0.5 Mg Tablet PO 09/12/24 20:06 0.5 mg Q4HR PRN Administration CIWA Score 2-6 Lorazepam 1 mg 09/07/24 20:07 Lorazepam 0.5 Mg Tablet PO 09/12/24 20:06 Q4HR PRN CIWA SCORE 7-11 Lorazepam 2 mg 09/07/24 20:07 Lorazepam 0.5 Mg Tablet PO 09/12/24 20:06 Q4HR PRN CIWA SCORE 12-15 Lorazepam 2 mg 09/07/24 20:07 Lorazepam 2 Mg/Ml Vial IVP X1 PRN Breakthrough Agitation Lorazepam 0.5 mg 09/07/24 20:19 Lorazepam 2 Mg/Ml Vial IV 09/12/24 20:18 Q2HR PRN CIWA SCORE 16-18 Lorazepam 1 mg 09/07/24 20:19 Lorazepam 2 Mg/Ml Vial IV 09/12/24 20:18 Q2HR PRN CIWA SCORE 19-21 Lorazepam 2 mg 09/07/24 20:19 Lorazepam 2 Mg/Ml Vial IV 09/12/24 20:18 Q2HR PRN CIWA SCORE 22-25 Morphine Sulfate 1 mg 09/08/24 03:54 09/08/24 04:13 Morphine Sulf Inj 10 Mg/Ml Vial IVP 09/13/24 03:52 1 mg Q4HR PRN Administration Pain 7-10 Ondansetron HCl 4 mg 09/07/24 20:00 Ondansetron Inj 2 Mg/Ml Inj 2 Ml IV 10/07/24 19:59 Q6H PRN NAUSEA OR VOMITING Protocol Sennosides 1 tab 09/08/24 09:00 Senna Tablet PO 10/08/24 08:59 QDAY JUAN Protocol Thiamine HCl 100 mg 09/07/24 21:00 09/07/24 21:12 Thiamine 100 Mg Tablet PO 09/12/24 20:59 100 mg BID JUAN Administration Plan In summary: 54 male PMHx of obesity, HTN, HLD, T2DM non-insulin, heavy alcohol use with frequent withdrawal seizures. Presented slurred speech, right-sided numbness admitted for stroke protocol. Continued on CIWA. EEG pending, started PLAVIX and ASPIRIN. Appreciate neurology recommendations. Complaining of back pain, dizziness, vitals wnl, CIWA 2 lipids TG 180, cholest 265, LDL 134 CVA r/o Alcohol withdrawal seizures Heavy alcohol use disorder Presenting with slurred speech, right-sided numbness, withdrawal seizures in setting of heavy alcohol use. CTA head/neck and CT head are negative for acute pathology. 3 days of right-sided numbness alongside ulnar nerve distribution, likely positional, overall improving. Currently CIWA score 2. NIHSS of 2. Neurology following, pending recommendations. No indication for MRI at this point, no worsening or new focal neurological deficit. ? Continue ASPIRIN 81 mg ? Started PLAVIX 75 mg daily ? Given 1 banana bag ? Continue CIWA protocol ? Continue LORAZEPAM 2 mg p.o. Q4H JUAN ? Physical therapy, speech therapy ? Head elevation > 30 degrees ? Pending EEG ? Pending echocardiogram with bubble study Possible congestive heart disease Possible coronary artery disease OHS/ISABELLA Morbid obesity Ministered 2 days of mid chest pain, nonradiating Per , patient has nocturnal dyspnea, snoring and periodical lower extremity edema No signs of fluid overload on exam. Risk factors include uncontrolled HTN, T2DM, obesity, family history of [place] ASCVD 11.7% risk cardiovascular event in the next 10 years, 2.6% with optimization Troponin was normal, EKG sinus tachycardia but no acute ST changes TSH 4.35, A1c 7.9, TG 180, cholest 265, LDL 134 ? Echocardiogram with bubble study as above ? Follow-up outpatient ? Consider cardiology consult Hypertension Hyperlipidemia Currently normotensive, allowing permissive hypertension as above TG 180, cholesterol 265, LDL 134, HDL 95 ? Continue ATORVASTATIN 80 mg daily NIDDM, type II A1c 7.9 this visit, GLUCOSE 217 today after 10 units glargine and sliding scale ? Continue 12 units glargine ? Continue sliding scale ? Accu-Cheks Alcohol-related liver disease Classic AST:ALT ratio of 2:1. History of heavy alcohol use, daily 18 cans of beer and 1 bottle of vodka, recurrent withdrawal seizures. Child-Klein score 5, 15-20 years life expectancy. Moderate score 2.6, good prognosis. ? Consulted on alcohol cessation ? Recommended outpatient LFTs monitoring with PCP Health maintenance Diet: Cardiac GI prophylaxis: Not indicated DVT prophylaxis: PLAVIX Antibiotics: Not indicated CODE STATUS: Full code Disposition: Pending symptoms improved Patient case was discussed with attending, Dr. Tong Sigala MD and senior resident Dr. Romero. Susan Hogan DO PGYI Attending Provider Attestation/Addendum I reviewed labs, imaging, EKG, home medications and prior available records. Face to face evaluation was performed by me. I have personally examined the patient and discussed assessment and plan with the IM team. I reviewed the resident note and agree with the plan with exceptions as below. Alcohol-related seizure Alcohol abuse CVA symptoms Uncontrolled diabetes mellitus with hyperglycemia Chronic pain Primary hypertension Follow-up brain MRI Follow-up EEG Follow-up echo with bubble study Seizure precautions Started insulin Lantus plus sliding scale insulin. Monitor fingersticks Permissive hypertension until CVA is ruled out [place] as needed for pain Counseled the patient regarding the importance of avoiding alcohol
[2024-09-08 07:34] LABS: Glucose Estimated Average 180 mg/dL (80-131); Hemoglobin A1C 7.9 % Hgb (4.8-6.0)
[2024-09-08 08:00] VITALS: BP 135/85; PULSE 97; RESP 12; TEMP 36.7; O2SAT 98
[2024-09-08] MEDS: INSULIN LISPRO (AdmeLOG) 1 UNIT/0.01 ML UNIT SC ×4 (08:02→21:40)
[2024-09-08 08:30] VITALS: PULSE 97
[2024-09-08] MEDS: FOLIC ACID 1 MG TABLET PO (09:31)
[2024-09-08] MEDS: ASPIRIN EC 81 MG TABEC PO (09:31)
[2024-09-08] MEDS: SENNA TABLET 1 TAB PO (09:31)
[2024-09-08] MEDS: THIAMINE INJ 100 MG/ML VIAL 2 ML IVP (09:32)
[2024-09-08] MEDS: THIAMINE 100 MG TABLET PO (09:32)
[2024-09-08] MEDS: Magnesium Sulfate 2 GM Ivpb 2 GM/50 ML BAG IV (10:29)
--- NOTE | 2024-09-08 11:43 | PCS.ST ---
WIND PLANT MANAGER attempted full swallow ax. Pt endorsed feeling nauseous. WIND PLANT MANAGER will attempt to complete swallow eval later today.
[2024-09-08 12:00] VITALS: BP 142/89; PULSE 86; PULSE 87; RESP 12; TEMP 36.2; O2SAT 96
[2024-09-08] MEDS: FOLIC ACID INJ 1 MG/0.2 ML IVP (12:02)
[2024-09-08] MEDS: ONDANSETRON INJ 2 MG/ML INJ 2 ML 4 MG IV (12:31)
[2024-09-08] MEDS: HYDROcodone/APAP 10/325 TAB PO (13:12)
[2024-09-08] MEDS: LORazepam 0.5 MG TABLET 2 MG PO ×2 (13:12→18:11)
--- NOTE | 2024-09-08 13:13 | PC.SS ---
Addendum entered by Tashia Friedman 09/08/24 15:25: Rollator ordered trough [facility] ([place] [facility]). Rollator will be delivered tomorrow. Original Note: This is 54-year-old, , male who presented to the ED due to suffering from right sided weakness. Patient appeared confused, all questions were answered by his , Parul. Parul reported that patient and her are at this time, patient is residing in an apartment with a daughter ([address], [place], [place]). Patient used to be independent with all ADLs, no DME use. However, PT recommended rollator and home health. Patient assigned his , Parul as his medical decision maker. Patient's PCP is Dr. Juani Ward. When medically clear, patient will return home with rollator. Discharge plan: home with rollator. Next of kin: Parul Ward, .
[2024-09-08 13:33] VITALS: BMI 13.0
--- NOTE | 2024-09-08 15:32 | PD.ADDPROG ---
Addendum Progress Note Addendum Date of report being addended: 09/09/24 Narrative: I reviewed labs, imaging, EKG, home medications and prior available records. Face to face evaluation was performed by me. I have personally examined the patient and discussed assessment and plan with the IM team. I reviewed the resident note and agree with the plan with exceptions as below. Alcohol-related seizure Alcohol abuse CVA symptoms Uncontrolled diabetes mellitus with hyperglycemia Chronic pain Primary hypertension Thrombocytopenia Right upper extremity numbness Follow-up brain MRI: Negative for stroke but positive for possible demyelinating disease. Will touch base with neurology for clinical correlation Follow-up EEG Follow-up echo with bubble study Seizure precautions Started insulin Lantus plus sliding scale insulin. Monitor fingersticks. A1c is 7.9 Permissive hypertension until CVA is ruled out [place] as needed for pain Counseled the patient regarding the importance of avoiding alcohol Hospital course was complicated by thrombocytopenia. No signs of active bleeding. Possibly related to alcohol abuse versus hemodilution. Monitor for bleeding. Monitor platelet level. Ordered arterial duplex of the right upper extremity to rule out clots/arterial disease given the numbness
[2024-09-08 16:00] VITALS: BP 155/97; PULSE 83; PULSE 87; RESP 13; TEMP 36.8; O2SAT 95
[2024-09-08 19:53] LABS: Collection Type, Urine Clean Catch; RBC,Urine 0 /hpf (0-3); WBC,Urine 0 /hpf (0-5)
[2024-09-08 20:00] VITALS: BP 147/98; PULSE 83; PULSE 87; RESP 14; TEMP 36.1; O2SAT 94
[2024-09-08 20:02] LABS: Bilirubin,Urine Negative (Negative); Blood,Urine Negative (Negative); Clarity,Urine Clear (Clear/Hazy); Color,Urine Yellow (Lt Yel-Yel); Glucose, Urine 4+ (Negative); Ketones,Urine Trace (Negative); Leukocyte Esterase,Urine Negative (Negative); Nitrite,Urine Negative (Negative); PH,Urine 6.5 (5.0-7.0); Protein,Urine 1+ (Neg - Trace); Squamous Epithelial Cell,Urine < 1 /hpf (0-5)
[2024-09-08 20:05] LABS: Specific Gravity,Urine 1.035 (1.001-1.035)
[2024-09-08 20:21] LABS: Amphetamine/Methamp Scrn,U Negative (Negative); Barbiturate Screen,Urine Negative (Negative); Benzodiazepines Screen,Urine Negative (Negative); Benzoylecgonine Screen, Ur Negative (Negative); Fentanyl Screen,Urine Negative (Negative); Opiate Screen,Urine Positive (Negative); THC Screen,Urine Negative (Negative)
[2024-09-08] MEDS: ATORVASTATIN CALCIUM 20 MG TABLET 40 MG PO (22:55)
[2024-09-09] VITALS (7 sets, daily range): BP systolic 126–162; BP diastolic 84–108; PULSE 82–101; RESP 14–25; TEMP 36.1–36.2; O2SAT 95–97
--- NOTE | 2024-09-09 | XR_ITS ---
Examinations: MRI Brain without intravenous contrast. MRA brain without intravenous contrast. MRA carotids without intravenous contrast 3-D vascular reconstructions Date and time of exam: September 09, 2024 0838 hours INDICATIONS: Onset slurred speech right-sided body numbness difficulty walking beginning 2 days ago Technique: Multiple axial and sagittal images of the brain have been obtained MRA brain carotid images without contrast obtained, including 3-D postprocessing, vascular maximum intensity projection images Findings: Sell[place] is not enlarged. The optic chiasm and infundibular stalk are not remarkable. Prepontine and interpeduncular cisterns are not enlarged. No localized enlargement of the medulla or vickie. Fourth ventricle and cerebellar tonsils normal in position. Subacute hemorrhage is not seen. Fourth ventricle is midline. Mass in the cerebellopontine angle region is not evident. 7th and 8th nerve complexes exhibits symmetry. Globes are symmetrical with no retro-orbital mass. Punctate focus increased signal right frontal white matter FLAIR image 14 Diffusion-weighted images demonstrate no focus of restricted diffusion Mass-effect upon the ventricular system is not identified. MRA carotid images degraded by patient motion. MRA brain images no large vessel occlusions Impression: Negative for acute hemorrhage mass effect or midline shift No acute infarct Punctate focus increased signal right frontal white matter, FLAIR image 14, demyelinating disease pattern, clinical correlation advised
[2024-09-09] MEDS: HYDROcodone/APAP 5/325 TABLET 1 TAB PO ×3 (05:02→21:25)
[2024-09-09 05:53] LABS: Basophils % (Auto) 0 % (0-2.5); Eosinophils # (Auto) 0.1 Thou/mm3 (0.0-0.5); Eosinophils % (Auto) 1 % (0-10); Hematocrit 39.1 % (41.0-53.0); Hemoglobin 13.3 g/dL (13.5-16.0); Immature Granulocytes % (Auto) 0 % (0-0); Immature Granulocytes Auto 0.01 Thou/mm3 (0.00-0.00); Lymphocytes % (Auto) 16 % (10-50); Mean Corpuscular Volume 100 fL (80-100); Monocytes # (Auto) 0.3 Thou/mm3 (0.0-0.8); Monocytes % (Auto) 5 % (0-12); Neutrophils # (Auto) 4.5 Thou/mm3 (1.8-7.7); Neutrophils % (Auto) 77 % (37-80); Nucleated Red Blood Cell % 0 /100 WBC (0); Platelet Count 125 Thou/mm3 (140-440); RDW Standard Deviation 48.8 fL (35.1-43.9); Red Blood Count 3.91 Miln/mm3 (4.50-5.90); White Blood Count 5.9 Thou/mm3 (3.8-10.6)
[2024-09-09 06:35] LABS: Alanine Aminotransferase 29 U/L (10-49); Albumin, Serum 4.4 gm/dL (3.5-5.0); Albumin/Globulin Ratio 1.5 (1.2-2.2); Alkaline Phosphatase 145 U/L (46-116); Anion Gap 8 (7-16); Aspartate Amino Transferase 75 U/L (0-34); BUN/Creatinine Ratio 9 Ratio (12-20); Bilirubin,Total 1.5 mg/dL (0.3-1.2); Blood Urea Nitrogen 9 mg/dL (9-23); Calcium 8.8 mg/dL (8.3-10.6); Calcium (Corrected) 8.8 mg/dL (8.5-10.1); Carbon Dioxide 25.9 mMol/L (20.0-31.0); Chloride 97 mMol/L (98-107); Estimated Creatinine Clearance 107.8 mL/min (>60); Globulin 2.9 gm/dL (2.3-3.5); Glucose 156 mg/dL (74-106); Osmolality,Calculated 264 (275-295); Potassium 3.4 mMol/L (3.4-5.1); Sodium 131 mMol/L (136-145); Total Protein 7.3 gm/dL (5.7-8.2); eGFR > 60 See Note
[2024-09-09] MEDS: SENNA TABLET 1 TAB PO (08:00)
[2024-09-09] MEDS: ASPIRIN EC 81 MG TABEC PO (08:00)
[2024-09-09] MEDS: FOLIC ACID INJ 1 MG/0.2 ML IVP (08:01)
[2024-09-09] MEDS: THIAMINE INJ 100 MG/ML VIAL 2 ML IVP (08:01)
[2024-09-09] MEDS: INSULIN LISPRO (AdmeLOG) 1 UNIT/0.01 ML UNIT SC ×4 (08:08→22:40)
--- NOTE | 2024-09-09 12:20 | XR_ITS ---
Examination: Arterial duplex upper extremity right Date and time of exam: September 09, 2024 1343 hours Findings: Duplex sonographic imaging of the upper extremity arteries using B-mode/Poole scale imaging and Doppler spectral analysis and color flow. INDICATIONS: Right hand numbness beginning one week ago FINDINGS: No elevation of peak systolic velocities in the right subclavian, axillary, brachial, radial or ulnar arteries IMPRESSION: No hemodynamically significant arterial stenoses
[2024-09-09] MEDS: INSULIN GLARGINE (Lantus) 5 UNIT/0.05 ML (PER 5 UNITS) SC (13:03)
[2024-09-09] MEDS: LORazepam 0.5 MG TABLET PO (13:03)
--- NOTE | 2024-09-09 13:07 | ESPR_ITS ---
<Statement entered by Madhu Kelly DO - 09/09/24 16:54> Senior attestation: Patient was examined and case was reviewed with team including attending physician. Note reviewed, I agree with most of its contents and agree with the patient's care. MRI revealed possible demyelinating disease in frontal lobe, pending neurology recommendations. Patient reported numbness on right fingertips, right upper extremity arterial duplex ordered, negative for arterial stenosis. Madhu Kelly DO PGY-3 Documentation for date of: 09/09/24 Subjective Subjective Interval history: Patient was seen and examined at bedside. No acute events overnight. Denies any nausea, vomiting, headache, Visual or auditory hallucinations. CIWA 0. Stop scheduled lorazepam 2 mg and continue as needed. Echo bubble study pending. Dr. Guillory recommendations pending as well. MRI negative for acute hemorrhage, no acute infarct. But significant for demyelinating disease pattern. Will continue with aspirin 81, Plavix 75 mg daily, atorvastatin 40 mg daily. Patient has history of fyb-vvpxyja-hypignqoc type 2 diabetes --glucose has been elevated since admission. Will start 5 units glargine and continue sliding scale. Patient had complained of numbness in right hand fingertips. Normal capillary refill, mild decrease in [employer] strength, radial pulse is palpated. However will order right upper extremity artery duplex US to rule out any possible arterial insufficiency. There is a questionable history of coronary artery disease which has not been worked up. Labs significant for downtrending platelets 125, sodium 131, creatinine 1.0, up trended bilirubin 1.5, downtrending AST 75. No evidence of abdominal pain on physical exam. Will just continue to monitor Br at this time. Review of systems otherwise negative except what is mentioned above. Exam Vital Signs Temp Pulse Resp BP Pulse Ox O2 Del Method 97.1 F 91 25 H 159/108 H 97 Room Air 09/09/24 12:00 09/09/24 12:00 09/09/24 12:00 09/09/24 12:00 09/09/24 12:00 09/09/24 12:00 Narrative Exam GENERAL: obese middle-age male, alert, orietned, CIWA 0 HEENT: NCAT.?ELYSIA. Oral mucosa is moist. Patent Nares NECK: Supple, nontender, no thyromegaly, no meningismus, no JVD, no step offs CHEST: Symmetrical, atraumatic, and with equal expansion, Nontender on palpation no deformity and no crepitus. CARDIOVASCULAR: RRR, no m/g/r LUNGS: CTAB, no w/r/r. Symmetrical chest rise. No intercostal subcostal retraction. ABDOMEN: Soft, obese, nontender. No guarding/rebound tenderness/masses. +BS EXTREMITIES: Nontender.? No edema/cyanosis.?Moves all 4 extremities well, with full ROM and good CSM. SKIN: Warm and dry, no jaundice/rashes. MSK: No lumbar or midline, no CVA, no paraspinal muscle spasm or tenderness. NEURO: no tremors, BAIRD x4, CN II-XII grossly intact.?No focal neurologic deficits. PSYCHIATRIC: Normal mood and affect, cooperative, no SI or HI or hallucinations. Objective Labs 09/10/24 05:34 09/10/24 05:34 Labs: Laboratory Results - last 24 hr 09/08/24 09/09/24 19:42 04:39 WBC 5.9 RBC 3.91 L Hgb 13.3 L Hct 39.1 L MCV 100 MCH 34.0 MCHC 34.0 RDW Std Deviation 48.8 H Plt Count 125 L D Neut % (Auto) 77 Lymph % (Auto) 16 Cross % (Auto) 5 Eos % (Auto) 1 Baso % (Auto) 0 Neut # (Auto) 4.5 Lymph # (Auto) 1.0 Cross # (Auto) 0.3 Eos # (Auto) 0.1 Baso # (Auto) 0.0 Immature Gran # (Auto) 0.01 H Absolute Nucleated RBC 0.00 Immature Gran % 0 Nucleated RBC % 0 Sodium 131 L Potassium 3.4 Chloride 97 L Carbon Dioxide 25.9 Anion Gap 8 BUN 9 Creatinine 1.0 Estim Creat Clear Calc 107.8 eGFR > 60 BUN/Creatinine Ratio 9 L Glucose 156 H Calculated Osmolality 264 L Calcium 8.8 Corrected Calcium 8.8 Total Bilirubin 1.5 H D AST 75 H ALT 29 Alkaline Phosphatase 145 H Total Protein 7.3 Albumin 4.4 Globulin 2.9 Albumin/Globulin Ratio 1.5 Ur Collection Type Clean Catch Urine Color Yellow Urine Clarity Clear Urine pH 6.5 Ur Specific [place] 1.035 Urine Protein 1+ A Urine Glucose (UA) 4+ A Urine Ketones Trace Urine Blood Negative Urine Nitrite Negative Urine Bilirubin Negative Urine Urobilinogen (Auto) 6.0 Ur Leukocyte Esterase Negative Urine RBC 0 Urine WBC 0 Ur Squamous Epith Cells < 1 Urine Bacteria None Urine Opiates Screen Positive A Urine Fentanyl Screen Negative Ur Barbiturates Screen Negative U Amphetamin/Meth Scrn Negative U Benzodiazepines Scrn Negative U Cocaine Metab Screen Negative U Marijuana (THC) Screen Negative Quality Measures Quality Measures none Assessment & Plan Assessment Current Active Medications: Generic Name Dose Route Start Last Admin Trade Name Freq PRN Reason Stop Dose Admin Acetaminophen 650 mg 09/07/24 20:00 09/07/24 22:35 Acetaminophen 325 Mg Tablet PO 10/07/24 19:59 650 mg Q6H PRN Administration Pain 1-3 and/or Fever >100.1 Hydrocodone Bitart/Acetaminophen 1 tab 09/08/24 14:21 09/09/24 05:02 Hydrocodone/Apap 5/325 Tablet PO 09/13/24 14:20 1 tab Q4HR PRN Administration Pain 4-6 Aspirin 81 mg 09/08/24 09:00 09/09/24 08:00 Aspirin Ec 81 Mg Tabec PO 10/08/24 08:59 81 mg QDAY JUAN Administration Atorvastatin Calcium 40 mg 09/08/24 21:00 09/08/24 22:55 Atorvastatin Calcium 20 Mg Tablet PO 10/07/24 20:59 40 mg HS JUAN Administration Cyclobenzaprine HCl 5 mg 09/08/24 09:43 Cyclobenzaprine 5 Mg Tablet PO 10/08/24 09:42 TID PRN MUSCLE SPASMS Dextrose 25 ml 09/07/24 20:00 Dextrose 50%-Water Inj 50 Ml Syringe IV 10/07/24 19:59 Q15MIN PRN BG 50-70 responsive npo pt Dextrose 50 ml 09/07/24 20:00 Dextrose 50%-Water Inj 50 Ml Syringe IV 10/07/24 19:59 Q15MIN PRN BG <50 OR BG <70 & pt unresponsive Folic Acid 1 mg 09/12/24 09:00 Folic Acid 1 Mg Tablet PO 10/12/24 08:59 BID JUAN Folic Acid 1 mg 09/09/24 09:00 09/09/24 08:01 Folic Acid Inj 1 Mg/0.2 Ml IVP 09/12/24 08:59 1 mg QDAY JUAN Administration Glucagon 1 mg 09/07/24 20:00 Glucagon Inj 1 Mg Vial IM Q15MIN PRN BG <70, and no IV access Insulin Glargine 5 unit 09/09/24 12:20 09/09/24 13:03 Insulin Glargine (Lantus) 5 Unit/0.05 Ml (Per 5 Units) SC 10/09/24 12:19 5 unit QDAY JUAN Administration Insulin Human Lispro 0 unit 09/07/24 21:00 09/09/24 11:50 Insulin Lispro (Admelog) 1 Unit/0.01 Ml Unit SC 10/07/24 20:59 4 unit ACHS JUAN Administration Protocol Lorazepam 0.5 mg 09/07/24 20:07 09/09/24 13:03 Lorazepam 0.5 Mg Tablet PO 09/12/24 20:06 0.5 mg Q4HR PRN Administration CIWA Score 2-6 Lorazepam 1 mg 09/07/24 20:07 Lorazepam 0.5 Mg Tablet PO 09/12/24 20:06 Q4HR PRN CIWA SCORE 7-11 Lorazepam 2 mg 09/07/24 20:07 Lorazepam 0.5 Mg Tablet PO 09/12/24 20:06 Q4HR PRN CIWA SCORE 12-15 Lorazepam 2 mg 09/07/24 20:07 Lorazepam 2 Mg/Ml Vial IVP X1 PRN Breakthrough Agitation Morphine Sulfate 2 mg 09/08/24 09:42 Morphine Sulf Inj 10 Mg/Ml Vial IVP 09/13/24 03:52 Q4HR PRN Pain 7-10 Ondansetron HCl 4 mg 09/07/24 20:00 09/08/24 12:31 Ondansetron Inj 2 Mg/Ml Inj 2 Ml IV 10/07/24 19:59 4 mg Q6H PRN Administration NAUSEA OR VOMITING Protocol Sennosides 1 tab 09/08/24 09:00 09/09/24 08:00 Senna Tablet PO 10/08/24 08:59 1 tab QDAY JUAN Administration Protocol Thiamine HCl 100 mg 09/08/24 09:00 09/09/24 08:01 Thiamine Inj 100 Mg/Ml Vial 2 Ml IVP 09/11/24 08:59 100 mg QDAY JUAN Administration Thiamine HCl 100 mg 09/11/24 09:00 Thiamine 100 Mg Tablet PO 10/11/24 08:59 QDAY JUAN Plan In summary: 54 male PMHx of obesity, HTN, HLD, T2DM non-insulin, heavy alcohol use with frequent withdrawal seizures. Presented slurred speech, right-sided numbness admitted for stroke protocol. Continued on CIWA. EEG pending, started PLAVIX and ASPIRIN. CVA r/o Alcohol withdrawal seizures, resolved Hx Heavy alcohol use disorder Presenting with slurred speech, right-sided numbness, withdrawal seizures in setting of heavy alcohol use. CTA head/neck and CT head are negative for acute pathology. 3 days of right-sided numbness alongside ulnar nerve distribution, likely positional, overall improving. Currently CIWA score 0. NIHSS of 2. Neurology following, pending recommendations. ? Continue ASPIRIN 81 mg ? continue PLAVIX 75 mg daily ? Continue CIWA protocol ? Stop scheduled LORAZEPAM 2 mg p.o. and continue as needed ? Physical therapy, speech therapy ordered ? Head elevation > 30 degrees ? Pending EEG ? Pending echocardiogram with bubble study -MRI negative for acute hemorrhage, no acute infarct. But significant for demyelinating disease pattern. Possible congestive heart disease Possible coronary artery disease OHS/ISABELLA Morbid obesity Ministered 2 days of mid chest pain, nonradiating Per , patient has nocturnal dyspnea, snoring and periodical lower extremity edema No signs of fluid overload on exam. Risk factors include uncontrolled HTN, T2DM, obesity, family history of [place] ASCVD 11.7% risk cardiovascular event in the next 10 years, 2.6% with optimization Troponin was normal, EKG sinus tachycardia but no acute ST changes TSH 4.35, A1c 7.9, TG 180, cholest 265, LDL 134 ? Echocardiogram with bubble study as above ? Follow-up outpatient ? Consider cardiology consult Numbness in right fingertips Patient has been complaining of right hand and fingertips numbness refill normal, slightly decreased in right hand versus left, radial pulse adequately palpated. However to rule out any arterial insufficiency will order right upper extremity artery duplex ultrasound. -RUE arterial dupelx US pending Hx Hypertension Hx hyperlipidemia TG 180, cholesterol 265, LDL 134, HDL 95 ? Continue ATORVASTATIN 80 mg daily -start home medication lisinopril 20 mg p.o. daily Hx NIDDM, type II A1c 7.9 this visit, GLUCOSE 217 today after 10 units glargine and sliding scale ? start 5 units glargine ? Continue sliding scale ? Accu-Cheks Alcohol-related liver disease Classic AST:ALT ratio of 2:1. History of heavy alcohol use, daily 18 cans of beer and 1 bottle of vodka, recurrent withdrawal seizures. Child-Klein score 5, 15-20 years life expectancy. Moderate score 2.6, good prognosis. ? Consulted on alcohol cessation ? Recommended outpatient LFTs monitoring with PCP Health maintenance Diet: Cardiac GI prophylaxis: Not indicated DVT prophylaxis: PLAVIX Antibiotics: Not indicated CODE STATUS: Full code Disposition: Pending neuro recs Patient case was discussed with attending, Dr. Sigala and seniors Dr. Kelly/Dr. Romero. Viviana Burt, PGY1 Mr Dumont is a 54 year old male with past medical history of essential hypertension, hyperlipidemia, type II yvy-uvrpwwo-dzspkbcul diabetes mellitus and alcohol use disorder history, with frequent withdrawal seizures, who was admitted to the ED with right-sided arm and hand numbness. Stroke alert was called, and patient admitted for stroke rule out. Head CT was negative for any acute findings. Brain MRI shows possible demyelinating disease in the frontal lobe. Right upper extremity arterial duplex was ordered for further evaluation given paresthesia at the fingertips, which was negative for any arterial stenosis. Patient may need outpatient nerve conduction study if the right arm numbness continues to persist. Back pain well-controlled with p.o. Timpson. In house neurology Dr Guillory is consulted for further evaluation, pending recommendations at this time. Patient examined and case discussed with the team including attending physician. Note reviewed, I agree with the care plan as documented. - Cyrus Romero MD, PGY 2 Attending Provider Attestation/Addendum I reviewed labs, imaging, EKG, home medications and prior available records. Face to face evaluation was performed by me. I have personally examined the patient and discussed assessment and plan with the IM team. I reviewed the resident note and agree with the plan with exceptions as below. Alcohol-related seizure Alcohol abuse CVA symptoms Uncontrolled diabetes mellitus with hyperglycemia Chronic pain Primary hypertension Thrombocytopenia Right upper extremity numbness Follow-up brain MRI: Negative for stroke but positive for possible demyelinating disease. Will touch base with neurology for clinical correlation Follow-up EEG Follow-up echo with bubble study Seizure precautions Started insulin Lantus plus sliding scale insulin. Monitor fingersticks. A1c is 7.9 Permissive hypertension until CVA is ruled out Timpson as needed for pain Counseled the patient regarding the importance of avoiding alcohol Hospital course was complicated by thrombocytopenia. No signs of active bleeding. Possibly related to alcohol abuse versus hemodilution. Monitor for bleeding. Monitor platelet level. Ordered arterial duplex of the right upper extremity to rule out clots/arterial disease given the numbness
[2024-09-09] MEDS: Lisinopril 20 MG TABLET PO (15:05)
[2024-09-09] MEDS: TAMSULOSIN HCL 0.4 MG CAPSULE PO (18:05)
[2024-09-09] MEDS: CYCLObenzaPRINE 5 MG TABLET PO (21:25)
[2024-09-09] MEDS: ATORVASTATIN CALCIUM 20 MG TABLET 40 MG PO (21:25)
--- NOTE | 2024-09-09 23:19 | PD.NEUROPROG ---
Documentation for date of: 09/09/24 Subjective Subjective Interval history: Patient was seen in telemetry today. Patient does complain of some paresthesias in the fingertips on the right Exam - Neurology Vital Signs Temp Pulse Resp BP Pulse Ox O2 Del Method 97.1 F 95 16 126/86 H 97 Room Air 09/09/24 20:00 09/09/24 20:00 09/09/24 20:00 09/09/24 20:00 09/09/24 20:00 09/09/24 20:00 Narrative Exam GENERAL APPEARANCE: Well hydrated, well-nourished in no acute distress. HEENT: Normocephalic, atraumatic, extraocular movements intact. Pupils: Equal reacting to light and accommodation NECK: Supple, no JVD or bruits. CARDIOVASULAR: Heart: S1, S2 heard, regular without S3-S4 or murmur no rubs or gallops. LUNGS/CHEST: Clear to auscultation bilaterally. No rails, rhonchi, or wheezing. Normal inspection. ABDOMEN: Soft, nontender, with normal bowel sounds. No pulsatile masses. No rebound, rigidity, or guarding. Normal inspection and palpation. EXTREMITIES: Normal inspection and palpation. No edema, clubbing or cyanosis. SKIN: Warm and dry without rashes. Normal inspection. MUSCULOSKELETAL: No cervical, thoracic, lumbar or midline bony tenderness. Normal inspection. NEURO: Alert, awake and oriented x3. Cranial nerves: II through XII grossly intact. Speech and language: Normal with no dysarthria or dysphasia. Motor system: Tone and bulk: Normal: Strength: 5 out of 5 in all 4 extremities; No pronator drift noted. Deep tendon reflexes: 2+ bilaterally symmetrical. Plantar reflex: Downgoing bilaterally. Sensory system: Intact to all modalities of sensation bilaterally. Coordination: Intact to [id number] and pzef-iark-zwia test bilaterally. No ataxia, no dysmetria, or dysdiadochokinesia noted. No intention tremors noted. Gait: Normal. Toe, heel, tandem walk all are normal. Romberg: Negative. No signs of meningeal irritation noted. PSYCHIATRIC: Normal mood and affect. Objective Labs 09/10/24 05:34 09/10/24 05:34 Labs: Laboratory Results - last 24 hr 09/09/24 04:39 WBC 5.9 RBC 3.91 L Hgb 13.3 L Hct 39.1 L MCV 100 MCH 34.0 MCHC 34.0 RDW Std Deviation 48.8 H Plt Count 125 L D Neut % (Auto) 77 Lymph % (Auto) 16 [place] % (Auto) 5 Eos % (Auto) 1 Baso % (Auto) 0 Neut # (Auto) 4.5 Lymph # (Auto) 1.0 [place] # (Auto) 0.3 Eos # (Auto) 0.1 Baso # (Auto) 0.0 Immature Gran # (Auto) 0.01 H Absolute Nucleated RBC 0.00 Immature Gran % 0 Nucleated RBC % 0 Sodium 131 L Potassium 3.4 Chloride 97 L Carbon Dioxide 25.9 Anion Gap 8 BUN 9 Creatinine 1.0 Estim Creat Clear Calc 107.8 eGFR > 60 BUN/Creatinine Ratio 9 L Glucose 156 H Calculated Osmolality 264 L Calcium 8.8 Corrected Calcium 8.8 Total Bilirubin 1.5 H D AST 75 H ALT 29 Alkaline Phosphatase 145 H Total Protein 7.3 Albumin 4.4 Globulin 2.9 Albumin/Globulin Ratio 1.5 Assessment & Plan Assessment and plan (1) Stroke-like symptom: Status: Acute Assessment and plan: Reassurance given to the patient regarding the negative MRI brain for acute infarction. Did show periventricular white matter changes in both frontal horns of the lateral ventricle, not suspicious for demyelinating disease. He does not need any further workup from neurology standpoint at this point. Continue with home meds: Statin, lisinopril and ferrous sulfate (2) Alcohol intoxication: Status: Resolved Assessment and plan: Advised alcohol cessation. tool worker to provide him with resources
[2024-09-10] VITALS (9 sets, daily range): BP systolic 115–135; BP diastolic 70–85; PULSE 94–109; RESP 12–20; TEMP 36–36.2; O2SAT 95–98; BMI 44.1
[2024-09-10 06:00] LABS: Basophils % (Auto) 0 % (0-2.5); Eosinophils # (Auto) 0.1 Thou/mm3 (0.0-0.5); Eosinophils % (Auto) 2 % (0-10); Hematocrit 38.9 % (41.0-53.0); Hemoglobin 13.2 g/dL (13.5-16.0); Immature Granulocytes % (Auto) 0 % (0-0); Immature Granulocytes Auto 0.02 Thou/mm3 (0.00-0.00); Lymphocytes # (Auto) 1.3 Thou/mm3 (1.0-4.8); Lymphocytes % (Auto) 21 % (10-50); Mean Corpuscular HGB Conc 33.9 g/dl (31.0-37.0); Mean Corpuscular Hemoglobin 34.2 pg (25.0-35.0); Mean Corpuscular Volume 101 fL (80-100); Monocytes # (Auto) 0.5 Thou/mm3 (0.0-0.8); Monocytes % (Auto) 8 % (0-12); Neutrophils # (Auto) 4.3 Thou/mm3 (1.8-7.7); Neutrophils % (Auto) 69 % (37-80); Nucleated Red Blood Cell % 0 /100 WBC (0); Platelet Count 115 Thou/mm3 (140-440); RDW Standard Deviation 48.5 fL (35.1-43.9); Red Blood Count 3.86 Miln/mm3 (4.50-5.90); White Blood Count 6.2 Thou/mm3 (3.8-10.6)
[2024-09-10 06:20] LABS: Alanine Aminotransferase 24 U/L (10-49); Albumin, Serum 4.3 gm/dL (3.5-5.0); Albumin/Globulin Ratio 1.5 (1.2-2.2); Alkaline Phosphatase 143 U/L (46-116); Anion Gap 7 (7-16); Aspartate Amino Transferase 52 U/L (0-34); BUN/Creatinine Ratio 12 Ratio (12-20); Bilirubin,Total 1.2 mg/dL (0.3-1.2); Blood Urea Nitrogen 12 mg/dL (9-23); Calcium 8.7 mg/dL (8.3-10.6); Calcium (Corrected) 8.7 mg/dL (8.5-10.1); Chloride 96 mMol/L (98-107); Estimated Creatinine Clearance 107.8 mL/min (>60); Globulin 2.9 gm/dL (2.3-3.5); Glucose 161 mg/dL (74-106); Osmolality,Calculated 269 (275-295); Potassium 3.7 mMol/L (3.4-5.1); Sodium 133 mMol/L (136-145); Total Protein 7.2 gm/dL (5.7-8.2); eGFR > 60 See Note
[2024-09-10] MEDS: VIT B12/Vit C/FA (Nephrovite) TABLET 1 TAB PO (08:52)
[2024-09-10] MEDS: Lisinopril 20 MG TABLET PO (08:52)
[2024-09-10] MEDS: TAMSULOSIN HCL 0.4 MG CAPSULE PO (08:52)
[2024-09-10] MEDS: ASPIRIN EC 81 MG TABEC PO (08:52)
[2024-09-10] MEDS: SENNA TABLET 1 TAB PO (08:52)
[2024-09-10] MEDS: HYDROcodone/APAP 5/325 TABLET 1 TAB PO ×2 (08:54→15:59)
[2024-09-10] MEDS: INSULIN GLARGINE (Lantus) 5 UNIT/0.05 ML (PER 5 UNITS) 8 UNIT SC (08:55)
[2024-09-10] MEDS: INSULIN LISPRO (AdmeLOG) 1 UNIT/0.01 ML UNIT SC ×3 (08:55→18:29)
--- NOTE | 2024-09-10 08:55 | PC.SS ---
Follow up note: SS spoke to physician who states patient may d/c home today. PT recommended HH with a rollator walker. DME was [facility] .
[2024-09-10] MEDS: CYANOCOBALAMIN INJ 1,000 mCg/ML VIAL 1000 MCG IM (09:03)
--- NOTE | 2024-09-10 13:24 | ESDS_ITS ---
<Statement entered by Cyrus Romero MD - 09/11/24 12:31> Patient was examined with the team including attending physician. Note reviewed, I agree with the discharge plan as documented. - Cyrus Romero M.D. PGY2 Planned Discharge Date 09/10/24 DS: Providers Provider Date of admission: 09/07/24 20:00 Primary care physician: Physician No Primary/Family Admitting Provider: Varinder Milton MD Attending Provider on Admission: Varinder Milton MD Consults: 09/07/24 17:20 Consult to Neurology / Tele-Neurology Routine Comment: Consulting Provider: [facility] 09/07/24 20:03 Consult to Neurology / Tele-Neurology Routine Comment: Consulting Provider: Sunny Guillory Referral Physical Therapy Routine Comment: Physician Instructions: 09/07/24 20:04 Referral Speech Therapy Routine Comment: Attending Provider on DC: Viviana Burt MD Discharging Provider: Ming Mccray MD DS: Diagnosis Problem List Completed Was Problem List Reviewed/Reconciled?: Yes Hospital Course Hospital Course Hospital course: Reason for hospitalization: EtOh withdrawl seizures/CVA workup Ignacio Dumont is 54 yr male with PMH of morbid obesity, hypertension, type 2 diabetes fhg-tsaywux-eabtechpy, hyperlipidemia, heavy alcohol use disorder who presented to ED on 09/07/24 after experiencing withdrawal symptoms including seizures and slurred speech with right sided numbness. Patient's last drink was earlier the day of admission. He was admitted for workup stroke/alcohol withdrawl seizures and started CIWA protocol. Teleneurology was consulted who assessed patient with NIHSS score of 2. MRI was negative for any acute infarction. Echo showed EF 65% with no cardiac thrombi. Home medications atorvastatin and lisinopril were started. Dosages were increased to atorvastatin 80 mg daily and lisinopril 20 mg daily. EEG was normal. Patient had also been complaining of right sided fingertip numbness since past couple of weeks. As there was questionable history of cardiovascular disease with no previous workup, arterial duplex study of right upper extremity was ordered. Not significant for any arterial stenosis. During course of admission, alcohol withdrawal symptoms were under control. He was experiencing urinary retention with no urine output for about 12 hours. Bladder scan showed a urine volume greater than 380 cc. Payan catheter was inserted providing immediate relief and patient was started on tamsulosin 0.4 mg daily. He subsequently passed voiding trial. Patient is now in stable condition and ready for discharge. Recommendations were given as below. Discharge Recommendations: Follow up with PCP in 1 to 2 weeks. If you do not have provider please call [facility] at [phone]. Follow-up with marking devices assembler in 1 week. Continue with home health physical therapy. Increased atorvastatin 20 mg daily to 80 mg daily. Increased lisinopril 10 mg to 20 mg daily. Continue home medications as noted above. Start taking aspirin 81 mg daily, Rybelsus 3 mg daily, tamsulosin 0.4 mg daily. Refrain from alcohol use. Return to ED if symptoms return or worsen. Hospital Diagnoses: #CVA-ruled out #Alcohol withdrawal seizures, resolved #Hx Heavy alcohol use disorder #Possible congestive heart disease #Possible coronary artery disease #OHS #ISABELLA #Morbid obesity #Numbness in right fingertips #Hx Hypertension #Hx hyperlipidemia #Hx NIDDM, type II #Alcohol-related liver disease #Urinary retention-resolved The patient's management plan was discussed with my attending physician Dr. Mccray and senior Dr. Romero. Viviana Burt MD, PGY-1 Time Spent with Patient Time attestation: Total time spent providing and/or coordinating discharge services: Time spent: Greater than 30 minutes Home Health Home Health Referral Orders: 09/10/24 08:26 Home Health Referral Routine Reason For Exam: physical therapy Home-Bound The patient must either because of illness or injury, need the aid of supportive devices such as crutches, canes, wheelchairs, and walkers; the use of special transportation; or the assistance of another person in order to leave their place of residence; OR have a condition such that leaving his or her home is medically contraindicated. In addition, the patient also meets the following criteria: patient is normally unable to leave the home and leaving home requires considerable taxing effort. Addendum to Home Health Certification Practitioner's Certification: I certify that the patient has been under my care in the hospital and the care of attending physician (see below). We had a dybh-pt-[id number] encounter on (see date below). My clinical findings indicate that the patient is home bound per the above criteria and the Home Health Services noted in these orders are medically necessary. The primary reason for the aecb-cu-nnhz encounter is related to the fact that the patient requires home health services. Date Certifying Czqa-ee-Klvo Physician Encounter: 09/07/24 Physician's Name who will Assume Oversight for HH Services: Physician No Primary/Family CHECK OUT CASHIER - Community Resources: No PT to Evaluate: Yes PT to evaluate and provide a treatmnet plan to increase patient's mobility and strength. Wound Care: No IV Therapy: No RN Safety Evaluation: Yes RN to evaluate and create a plan of care that will produce positive outcomes. Palliative Treatment: No Palliative treatment and evaluate the need for hospice. Home Health Aide - Personal Care: No Home Health Aide to assist with any ADL's. Exam Vital Signs Temp Pulse Resp BP Pulse Ox O2 Del Method 97.1 F 103 H 17 115/85 H 95 Room Air 09/10/24 11:49 09/10/24 13:07 09/10/24 11:49 09/10/24 11:49 09/10/24 11:49 09/10/24 11:49 Narrative Exam GENERAL: obese middle-age male, alert, orietned, CIWA 0 HEENT: NCAT.?ELYSIA. Oral mucosa is moist. Patent Nares NECK: Supple, nontender, no thyromegaly, no meningismus, no JVD, no step offs CHEST: Symmetrical, atraumatic, and with equal expansion, Nontender on palpation no deformity and no crepitus. CARDIOVASCULAR: RRR, no m/g/r LUNGS: CTAB, no w/r/r. Symmetrical chest rise. No intercostal subcostal retraction. ABDOMEN: Soft, obese, nontender. No guarding/rebound tenderness/masses. +BS EXTREMITIES: Nontender.? No edema/cyanosis.?Moves all 4 extremities well, with full ROM and good CSM. SKIN: Warm and dry, no jaundice/rashes. MSK: No lumbar or midline, no CVA, no paraspinal muscle spasm or tenderness. NEURO: no tremors, BAIRD x4, CN II-XII grossly intact.?No focal neurologic deficits. PSYCHIATRIC: Normal mood and affect, cooperative, no SI or HI or hallucinations. Discharge Plan Plan Patient Disposition: HOME (Self Care) Disposition Comment: Stable Patient condition on transfer: Stable Prescriptions/Referrals Prescriptions/Med Rec: New atorvastatin 40 mg tablet 40 mg PO QPM 30 Days Qty: 30 0RF aspirin 81 mg tablet,delayed release (DR/EC) 81 mg PO QDAY 30 Days Qty: 30 0RF cyclobenzaprine 5 mg tablet 5 mg PO TID PRN (Reason: muscle spasm) 30 Days Qty: 30 0RF lisinopril 20 mg tablet 20 mg PO QDAY 30 Days Qty: 30 0RF metformin 500 mg tablet 500 mg PO BID 30 Days Qty: 60 0RF tamsulosin 0.4 mg capsule 0.4 mg PO QDAY 30 Days Qty: 30 0RF (DME) FreeStGarmor Shelli 3 Sensor Device See Rx Instructions .Route Qty: 1 0RF Rx Instructions: As directed Rybelsus 3 mg tablet 3 mg PO QDAY 30 Days Qty: 30 0RF lidocaine 5 % adhesive patch,medicated 1 patch topical QDAY 15 Days Qty: 15 0RF Rx Instructions: leave on most painful area for up to 12 hrs Continued ferrous sulfate [FeroSul] 325 mg (65 mg iron) Tablet 325 mg PO QDAY Discontinued atorvastatin 20 mg Tablet 20 mg PO QPM lisinopril 10 mg Tablet 10 mg PO QDAY Referrals: Viviana Burt MD [Resident] - No Primary/Family,Physician [Primary Care Provider] - Patient/Caregiver Discharge Instructions Meds to Beds: Yes Discharge Activity: as per physical therapy and resume usual activities Other Discharge Activity Instructions:: Follow up with PCP in 1 to 2 weeks. If you do not have provider please call [facility] at [phone]. Follow-up with marking devices assembler in 1 week. Continue with home health physical therapy. Increased atorvastatin 20 mg daily to 80 mg daily. Increased lisinopril 10 mg to 20 mg daily. Continue home medications as noted above. Start taking aspirin 81 mg daily, Rybelsus 3 mg daily, tamsulosin 0.4 mg daily. Refrain from alcohol use. Return to ED if symptoms return or worsen. Education Materials: ED Alcohol Withdrawal Seizure, ED Sleep Apnea, Obstructive, ED Alcohol Abuse Print Language: Swedish Stand Alone Forms: Charu Award Info., Patient Portal Info Letter Discharge Order Discharge Orders: Discharge (Routine); Ordered 09/10/24 Ordered By: Juliane Guillory Quality Discharge Quality Measures VTE prophylaxis MD Attestestation MD Attestation I have examined the patient, reviewed labs and imaging findings, discussed the case with the resident(s), and reviewed entered orders. I agree with the plan of care as outlined in this note. Dr. Mccray
--- NOTE | 2024-09-10 14:23 | PC.NURSE ---
unclamped wan cath
--- NOTE | 2024-09-10 19:07 | PC.NURSE ---
Addendum entered by Rafael Landis RN 09/10/24 19:58: Patient discharged at 1949 on 09/10/2024 Addendum entered by Rafael Landis RN 09/10/24 19:20: RN contacted Dr. Kirby and he said he will put in the orders for Discharge. Addendum entered by Rafael Landis RN 09/10/24 19:17: RN will attempt to call hospitalist to figure out what is going on with the discharge. Original Note: Patient stated he was supposed to be discharged about 6 hours ago. SUNSHINE Waterman contact night hospitalist to see what is going on with the discharge orders and the hospitalists said they will look at it.
== END 2024-09-10 19:49 | disposition home or self-care (01) | DRG 775 ==
LOC: SERX 19:26 → SERHOLD 20:24 → S2NX 09-08 01:13
PROVIDERS: Internal Medicine; Nurse Practitioner Family; Admitting Provider Internal Medicine; Emergency Provider Emergency Medicine; Visit Provider Internal Medicine
DX: F10.139 Alcohol abuse with withdrawal, unspecified (principal); F10.129 Alcohol abuse with intoxication, unspecified; R56.9 Unspecified convulsions; E66.2 Morbid (severe) obesity with alveolar hypoventilation; K70.9 Alcoholic liver disease, unspecified; E11.65 Type 2 diabetes mellitus with hyperglycemia; I10 Essential (primary) hypertension; E78.00 Pure hypercholesterolemia, unspecified; I25.10 Atherosclerotic heart disease of native coronary artery without angina pectoris; Y90.8 Blood alcohol level of 240 mg/100 ml or more; I16.1 Hypertensive emergency; Z68.41 Body mass index [BMI] 40.0-44.9, adult; R20.0 Anesthesia of skin; M54.9 Dorsalgia, unspecified; D69.6 Thrombocytopenia, unspecified; Z82.49 Family history of ischemic heart disease and other diseases of the circulatory system; G89.29 Other chronic pain; Z79.82 Long term (current) use of aspirin; Z79.84 Long term (current) use of oral hypoglycemic drugs; Z79.899 Other long term (current) drug therapy
CPT/HCPCS: 36415; 70450; 70496; 70498; 70544; 80053; 80061; 80307; 80320; 81001; 83036; 83735; 84100; 84443; 84484; 85025; 85610; 85730; 87086; 87811; 92610; 93005; 93306; 93931; 96372; 97162; 99285; A4649; J1815; J2270; J2405; J3411; J3420; J3475; J3490; Q9967; A9270; G0480

== ENCOUNTER 2024-09-10 20:50 | Emergency (ER) | payer OTHER, SELFPAY ==
[2024-09-10 20:51] VITALS: BMI 43.2
[2024-09-10 21:00] VITALS: BP 156/85; PULSE 113; RESP 18; TEMP 36.6; O2SAT 95
[2024-09-10] MEDS: LORazepam 0.5 MG TABLET 2 MG PO (21:14)
--- NOTE | 2024-09-11 01:27 | EDNOTE_ITS ---
ED Seizures RME/HPI General Chief Complaint: Seizure Stated Complaint: SEIZURE Time Seen by Provider: 09/10/24 20:53 Arrival date/time: 09/10/24 20:50 RME / HPI RME / HPI Narrative: This section includes all my notes and documentations, including HPI, PE, and ED course. Victor M Velasquez MD HPI: 54-year-old male here to be evaluated with seizure just prior to arrival. He was discharged from hospitalization earlier today. He was hospitalized for several days for neurological symptoms. Extensive workup was negative, including head CT and MRI. At admission, he was severely intoxicated (serum alcohol ~350). He drinks heavily on a daily basis. This is very occurred in the car. No witnesses. He bit his tongue. No urinary or fecal incontinence. Currently, he feels back to normal. No other complaints. ROS: All negative except as documented in HPI. Physical Exam: General: Alert and oriented. No acute distress. Eyes: Conjunctivae and lids clear. EOMI. PERRL. ENT: No nasal congestion. Pharynx normal. Tympanic membrane normal bilaterally. Neck: Supple. No carotid bruit. No JVD. Heart: RRR. Lungs: No respiratory distress. Good air movement. No rhonchi, wheezing, rales. Abdomen: Soft and nontender. Normal bowel sounds. No distension. No rebound or guarding. Legs: No clubbing, cyanosis, edema. Skin: Warm and dry. Neuro: Alert and oriented X 3. Cranial Nerves II-XII grossly intact. No peripheral motor deficits. To prevent another seizure (probably alcohol withdrawal seizure), she was given oral Ativan 2 mg. Told him I would review his records from the recent hospitalization and talk to him and discuss further care, including diagnostic test. When I looked for him for the discussion, I was told he eloped. Victor M Velasquez MD Related Data Home Medications ?Medication ?Instructions ?Recorded ?Confirmed ferrous sulfate 325 mg (65 mg 325 mg PO QDAY 07/18/24 07/18/24 iron) tablet (FeroSul) Previous Rx's ?Medication ?Instructions ?Recorded aspirin 81 mg tablet,delayed 81 mg PO QDAY 1 month #30 tabs 09/10/24 release atorvastatin 40 mg tablet 40 mg PO QPM 1 month #30 tabs 09/10/24 blood-glucose sensor (FreeStyle #1 ea 09/10/24 Shelli 3 Sensor device) cyclobenzaprine 5 mg tablet 5 mg PO TID PRN muscle spasm 1 09/10/24 month #30 tabs lidocaine 5 % topical patch 1 patch topical QDAY 15 days #15 ea 09/10/24 lisinopril 20 mg tablet 20 mg PO QDAY 1 month #30 tabs 09/10/24 metformin 500 mg tablet 500 mg PO BID 1 month #60 tabs 09/10/24 semaglutide 3 mg tablet (Rybelsus) 3 mg PO QDAY 30 days #30 tabs 09/10/24 tamsulosin 0.4 mg capsule 0.4 mg PO QDAY 1 month #30 caps 09/10/24 Allergies Allergy/AdvReac Type Severity Reaction Status Date / Time No Known Allergies Allergy Verified 09/10/24 20:53 Course Quality Measures none Orders Category Date Time Status Glucose [Bedside Blood Glucose] NOW Care 09/10/24 21:04 Completed LORazepam [Ativan] Med 09/10/24 21:04 Discontinued 2 mg PO X1 ONE Vital Signs Vital signs: Vital Signs Temperature 98 F 09/10/24 21:00 Pulse Rate 113 H 09/10/24 21:00 Respiratory Rate 18 09/10/24 21:00 Blood Pressure 156/85 H 09/10/24 21:00 Pulse Oximetry (%) 95 09/10/24 21:00 Oxygen Delivery Method Room Air 09/10/24 21:00 Seizure Patient data External records reviewed:: [facility] previous records Clinical information provided by:: patient Social determinants that could affect healthcare access:: alcohol use Patient has the following chronic illnesses:: Alcohol abuse How is presenting disease/condition affected by chronic disease/condition?: exacerbated by Evaluation data The following diagnostics were reviewed and interpreted by me:: other (specify) (Patient eloped prior to diagnostic tests) Lab and/or radiology exams considered but not ordered:: None Interpretation Summary: Patient eloped prior to diagnostic tests Medications / Prescriptions Medications or Prescriptions considered but not ordered:: None Medication administrations:: Medication Administration History Discontinued Medications Lorazepam (Lorazepam 0.5 Mg Tablet) 2 mg PO X1 ONE Stop: 09/10/24 21:05 Last Admin: 09/10/24 21:14 Dose: 2 mg Documented By: KAYLIN Ativan Consultations Consultation(s) initiated? (list below): No Diagnosis Seizure Differential Diagnosis: intractable seizure disorder, focal seizure, generalized seizure, new onset seizure, epileptic seizure, status epilepticus and other (Alcohol withdrawal) Most likely diagnosis given after review of the tests above:: Patient eloped prior to diagnostic tests Admission Indicated Admission indicated?: not indicated Explain why admission is indicated or not indicated:: Patient eloped prior to diagnostic tests Admission Request Was there a request for admission?: No Disposition Plan Disposition Plan: other (specify) (Patient eloped prior to diagnostic tests) Discharge Plan Plan Patient Disposition: Elopement Prescriptions/Referrals Prescriptions/Med Rec: No Action ferrous sulfate [FeroSul] 325 mg (65 mg iron) Tablet 325 mg PO QDAY atorvastatin 40 mg tablet 40 mg PO QPM 30 Days Qty: 30 0RF aspirin 81 mg tablet,delayed release (DR/EC) 81 mg PO QDAY 30 Days Qty: 30 0RF cyclobenzaprine 5 mg tablet 5 mg PO TID PRN (Reason: muscle spasm) 30 Days Qty: 30 0RF lisinopril 20 mg tablet 20 mg PO QDAY 30 Days Qty: 30 0RF metformin 500 mg tablet 500 mg PO BID 30 Days Qty: 60 0RF tamsulosin 0.4 mg capsule 0.4 mg PO QDAY 30 Days Qty: 30 0RF (DME) FreeStyle Shelli 3 Sensor Device See Rx Instructions .Route Qty: 1 0RF Rx Instructions: As directed Rybelsus 3 mg tablet 3 mg PO QDAY 30 Days Qty: 30 0RF lidocaine 5 % adhesive patch,medicated 1 patch topical QDAY 15 Days Qty: 15 0RF Rx Instructions: leave on most painful area for up to 12 hrs Referrals: No Primary/Family,Physician [Primary Care Provider] - In 1 week Problem List Clinical Impression: Seizure Patient/Caregiver Discharge Instructions Print Language: Northern Irish
== END 2024-09-10 22:03 | disposition left against medical advice (07) ==
LOC: SERX 22:18
PROVIDERS: Emergency Provider Emergency Medicine
DX: R56.9 Unspecified convulsions (principal)
CPT/HCPCS: 99282; A9270